=== PATIENT | female | born 1955 | race Caucasian/White ===

== ENCOUNTER → 2016-05-09 08:10 | Outpatient (CLI) | payer MEDICAID ==
[2016-01-21 16:49] VITALS: BMI 24.9
[~2016-05-09 08:10] MED LIST: ALPHAGAN P15 ML EACH EYE; ASPIRIN81 MG PO; BAYER CHEWABLE81 MG PO; CELEXA20 MG PO; GAS-X180 MG; GAS-X180 MG PO; HYDROCHLOROTHIA25 MG; HYDROCHLOROTHIA25 MG PO; HYDROCODONE-APA1 TAB; HYDROCODONE-APA1 TAB PO; LIPITOR20 MG PO; LUMIGAN 0.01%2.5 ML EACH EYE; NEXIUM40 MG; NITROSTAT0.4 MG SL; PLAVIX75 MG PO; PRILOSEC20 MG PO; ROBAXIN500 MG PO; TIMOPTIC 0.5 % O5 ML EACH EYE; TRAZODONE HCL50 MG PO; VALIUM10 MG PO
== END | disposition home or self-care (01) ==
LOC: D.RAD 08:10
DX: M54.2 Cervicalgia (principal)

== ENCOUNTER → 2017-02-20 11:08 | Outpatient (CLI) | payer MEDICAID ==
[~2017-02-20] VITALS: Ht 162.6 cm; Wt 72.7 kg
--- NOTE | ~2017-02-20 | HEMODYNAMI ---
PATIENT:JAZMIN ULIS MEDICAL RECORD: [id number] : 51 LOCATION:[facility] ADMISSION DATE: 02/20/17 Generatedon:02/20/201714:14 Patient name: JAZMIN LUIS Patient #: [id number] SSN: : 1955 Date of study: 02/20/2017 Page: Of Hemodynamic Procedure Report Patient Data Patient Demographics Procedure consent was obtained First Name: JAZMIN Gender: Female Last Name: TOBY : 1955 [facility] Initial: J Age: 61 year(s) Patient #: [id number] Race: Additional ID: [id number] Contact details [address]: [address] [place] [address] State: [place] City: [place] Zip code: [address] Past Medical History Allergies Allergen Reaction Date Comments Reported Sulfa drugs 06/23/2014 Other allergy 02/20/2017 Sulfa Admission Admission Data Admission Date: 02/20/2017 Admission Time: 11:08 Procedure Procedure Types Cath Procedure Diagnostic Procedure C [facility] w/Coronaries Miscellaneous Procedures Moderate Sedation up to 15 minutes Procedure Description Procedure Date Procedure Date: 02/20/2017 Procedure Start Time: 13:48 Procedure End Time: 14:13 Procedure Staff Name Function Spike Butler MD Performing Physician Petty Gomez RT Monitor Caroline Blake RT Scrub Sarwat Liu RN Nurse Procedure Data Cath Procedure Fluoroscopy Diagnostic fluoroscopy Total fluoroscopy Time: 3.6 time: 3.6 min min Diagnostic fluoroscopy Total fluoroscopy dose: 376 dose: 376 mGy mGy Contrast Material Contrast Material Type Amount (ml) Isovue 300 54 Entry Location Entry Primary Successful Side Size Upsize Upsize Entry Closure Yanez ccessful Closure Location (Fr) 1 (Fr) 2 (Fr) Remarks Device Remarks Radial Right 6 Fr Mechanical artery Short Compression Estimated blood loss: 10 ml Diagnostic catheters Device Type Used For End Catheter Placement Diagnostic Terumo 5Fr Procedure Valdez 110cm catheter Diagnostic Infinity 5Fr Procedure AR MOD Catheter Procedure Complications No complications Procedure Medications Medication Administration Route Dosage Oxygen NC 2 l/min Heparin Flush Bag added to field 2 bags (1000units/500ml NS) 0.9% NaCl I.V. 100 ml/hr Radial Cocktail added to field 1 syringe (Verapomil 2mg/Nitro 400mcg/Heparin 1500units) Fentanyl I.V. 50 mcg Versed I.V. 1 mg Fentanyl I.V. 50 mcg Versed I.V. 1 mg Radial Cocktail I.A. 1 syringe (Verapomil 2mg/Nitro 400mcg/Heparin 1500units) Fentanyl I.V. 50 mcg Hemodynamics Rest Heart Rate: 58 (bpm) Pressure Samples Time Site Value (mmHg) Purpose Heart Use Rate(bpm) 13:52 LV 83/6,11 Snapshot 101 Gradients Valve Time Site Site Mean SEP/DFP Peak To Heart Use 1 2 (mmHg) (sec/min) Peak Rate (mmHg) (bpm) Aortic 13:53 LV AO 74 Snapshots Pre Cath Intra NCS Post Cath Vital Signs Time Heart Resp SPO2 etCO2 NIBP (mmHg) Rhythm Pain Sedation Rate (ipm) (%) (mmHg) Status Level (bpm) 13:35:46 54 21 98 0 134/83(105) NSR 0 (11) 10(A) , No pain 13:39:56 57 17 100 38.2 141/81(119) NSR 0 (11) 10(A) , No pain 13:44:12 58 17 98 45 120/74(103) NSR 0 (11) 10(A) , No pain 13:48:19 59 18 95 0 121/74(94) NSR 0 (11) 10(A) , No pain 13:52:35 70 21 98 43.5 112/72(70) NSR 0 (11) 10(A) , No pain 13:57:22 71 20 91 36.7 113/73(91) NSR 0 (11) 10(A) , No pain 14:01:26 67 19 92 0 113/76(91) NSR 0 (11) 10(A) , No pain 14:05:30 66 28 95 50.3 118/73(106) NSR 0 (11) 10(A) , No pain 14:06:54 64 17 95 27 113/70(90) NSR 0 (11) 10(A) , No pain 14:10:59 62 8 94 34.5 114/68(94) NSR 0 (11) 10(A) , No pain Medications Time Medication Route Dose Verified Delivered Reason Notes Effectiveness by by 13:39:37 Oxygen NC 2 l/min Spike Sarwat Per Luke Liu RN physician 13:40:12 Heparin Flush added 2 bags Spike Sarwat used for Bag to Luke Liu RN procedure (1000units/500ml field NS) 13:40:27 0.9% NaCl I.V. 100 Spike Sarwat Per ml/hr Luke Liu RN physician 13:40:36 Radial Cocktail added 1 Spike Sarwat used for (Verapomil to syringe Luke Liu RN procedure 2mg/Nitro field 400mcg/Heparin 1500units) 13:46:01 Fentanyl I.V. 50 mcg Spike Sarwat for sedation Luke Liu RN 13:46:08 Versed I.V. 1 mg Spike Sarwat for sedation Luke Liu RN 13:50:30 Fentanyl I.V. 50 mcg Spike Sarwat for sedation Luke Liu RN 13:50:36 Versed I.V. 1 mg Spike Sarwat for sedation Luke Liu RN 13:52:27 Radial Cocktail I.A. 1 Spike Spike for (Verapomil syringe Luke Butler MD vasodilation 2mg/Nitro 400mcg/Heparin 1500units) 13:52:33 Fentanyl I.V. 50 mcg Spike Sarwat for sedation Luke Liu RN Procedure Log Time Note 13:16:18 Informed consent obtained and on chart 13:16:22 Diagnostic Cath Status : Elective 13:16:38 Caroline Blake RT(R) sent for patient. Start room use. 13:16:39 Time tracking: Regular hours 13:16:43 Plan of Care:Hemodynamics will remain stable., Cardiac rhythm will remain stable., Comfort level will be maintained., Respiratory function will remain adequate., Patient/ family verbilizes understanding of procedure., Procedure tolerated without complication., Recovers from procedure without complications.. 13:32:28 Patient received from Pre/Post Procedure Room to [facility] 2 Alert and oriented. Tansferred to table in Supine position. 13:32:30 Warm blankets applied, and nery hugger turned on for patient comfort. 13:32:30 Correct patient and procedure confirmed by team. 13:32:31 ECG and BP/O2 sat monitors applied to patient. 13:34:45 Vital chart was started 13:39:37 Oxygen 2 l/min NC was administered by Sarwat Liu RN; Per physician; 13:40:12 Heparin Flush Bag (1000units/500ml NS) 2 bags added to field was administered by Sarwat Liu RN; used for procedure; 13:40:27 0.9% NaCl 100 ml/hr I.V. was administered by Sarwat Liu RN; Per physician; 13:40:36 Radial Cocktail (Verapomil 2mg/Nitro 400mcg/Heparin 1500units) 1 syringe added to field was administered by Sarwat Liu RN; used for procedure; 13:41:35 Baseline sample Acquired. 13:41:41 Rhythm: sinus rhythm 13:41:44 Full Disclosure recording started 13:42:03 H&P Date Dictated: 02/08/2017 Within 30 days and on chart., H&P Addendum completed by physician on day of procedure. (MUST COMPLETE FOR ALL OUTPATIENTS). 13:42:06 Family in waiting room. 13:42:08 Patient NPO since Midnight. 13:42:24 Patient allergic to Other allergySulfa 13:42:30 Is patient on blood thinner?No 13:42:34 Patient diabetic? No. 13:42:44 Snore? Yes 13:42:46 Sleep apnea? No 13:42:47 Deviated septum? No 13:42:53 Dentures? No ? 13:43:01 IV patent on arrival in left hand with 0.9% NaCl at KVO. 13:43:13 Lab results completed and on chart. 13:43:17 Right Radial & Right Groin area was prepped with chlora-prep and draped in sterile fashion 13:43:19 Alarms reviewed by R. N. 13:43:20 Sharps counted by scrub and verified by R.N. 13:43:23 Physician paged 13:43:25 Physician arrived 13:43:25 --------ALL STOP TIME OUT------ 13:43:26 Final Timeout: patient, procedure, and site verified with staff and physician. All members of the team are in agreement. 13:43:28 Right Radial & Right Groin site verified by team. 13:43:35 Sedation plan: IV Moderate Sedation Medication:Versed, Fentanyl 13:44:32 Use device set Radial Dx 13:44:33 Acist Syringe opened to sterile field. 13:44:33 Medline Cath Pack opened to sterile field. 13:44:34 Bag Decanter opened to sterile field. 13:44:34 Terumo 6Fr Slender Glidesheath opened to sterile field. 13:44:35 St Se 260cm J .035 wire opened to sterile field. 13:44:36 Acist Hand Control opened to sterile field. 13:44:36 Acist Manifold opened to sterile field. 13:44:37 Tegaderm 4 x 4 opened to sterile field. 13:44:37 MBrace Wrist Support opened to sterile field. 13:46:01 Fentanyl 50 mcg I.V. was administered by Sarwat Liu RN; for sedation; 13:46:08 Versed 1 mg I.V. was administered by Sarwat Liu RN; for sedation; 13:48:37 Procedure started. 13:48:52 Local anesthetic to right femoral artery with Lidocaine 2% by Spike Butler MD.INITIAL ACCESS ONLY 13:48:55 Zero performed for pressure channel P1 13:49:13 A 6 Fr Short sheath was inserted into the Right Radial artery 13:50:30 Fentanyl 50 mcg I.V. was administered by Sarwat Liu RN; for sedation; 13:50:32 A Diagnostic Terumo 5Fr Valdez 110cm catheter was advanced over the wire and used for Procedure. 13:50:36 Versed 1 mg I.V. was administered by Sarwat Liu RN; for sedation; 13:51:57 LV angiography performed. 13:52:27 Radial Cocktail (Verapomil 2mg/Nitro 400mcg/Heparin 1500units) 1 syringe I.A. was administered by Spike Butler MD; for vasodilation; 13:52:33 Fentanyl 50 mcg I.V. was administered by Sarwat Liu RN; for sedation; 13:52:50 EF : 45 % 13:53:17 LCA angiography performed. 13:56:53 Catheter removed. 13:58:12 A Diagnostic Infinity 5Fr AR MOD Catheter was advanced over the wire and used for Procedure. 13:58:31 Catheter removed. 14:07:38 Terumo TR Band Standard opened to sterile field. 14:08:54 Sheath removed intact; hemostasis achieved with Mechanical Compression to the Right Radial artery. 14:08:57 Procedure ended.(Physican Out) 14:09:09 Fluoroscopy time 03.60 minutes. 14:09:25 Fluoroscopy dose: 376 mGy 14:09:25 Flurop Dose total: 376 14:09:29 Contrast amount:Isovue 300 54ml. 14:09:31 Sharps counted by scrub and verified by R.N. 14:09:42 TR band inflated with 11cc of air. 14:11:26 Insertion/operative site no bleeding no hematoma. 14:11:31 Post Procedure Pulses reassessed and unchanged 14:11:39 Post-procedure physical assessment completed. ASA score P 2 - A patient with mild systemic disease as per Spike Butler MD. 14:11:50 Post procedure rhythm: unchanged. 14:11:54 Estimated blood loss: 10 ml 14:11:56 Post procedure instruction explained to patient.Patient verbalizes understanding. 14:11:59 Patient needs reinforcement of post procedure teaching. 14:12:10 Procedure type changed to Cath procedure, Diagnostic procedure, LHC, LHC w/Coronaries, Miscellaneous Procedures, Moderate Sedation up to 15 minutes 14:12:15 Procedure and supply charges have been captured, reviewed, submitted and are correct. 14:12:45 Procedure Complication : No complications 14:12:49 Vital chart was stopped 14:12:50 See physician's report for complete and final results. 14:13:07 Report given to Pre/Post Procedure Room. 14:13:19 Patient transfered to Pre/Post Procedure Room with Stretcher. 14:13:21 Procedure ended. 14:13:21 Full Disclosure recording stopped 14:13:26 End room use (Document Last) Device Usage Item Name Manufacture Quantity Catalog Hospital Part Current Minimal Lot# / Number Charge Number Stock Stock Serial# Code Acist Acist 1 [id number] [id number] 20 Syringe [employer] Medline Cardinal 1 [id number] 50997 893367 5 Cath Pack Health Bag Microtek 1 2001S [id number] 50879 451138 5 Altor [employer] Terumo 6Fr Terumo 1 [id number] 695797 402440 858750 [address] Se 1 541453 935951 656663 944497 30 260cm J .035 wire Acist Hand Acist 1 71179 184232 478710 392474 5 Control [employer] Inc Acist Acist 1 49256 459807 449150 933525 5 Manifold [employer] Inc Tegaderm 4 3M 1 1626W 276976 023102 813096 5 x 4 MBrace Advanced 1 140-0250-00 961729 98159 249056 5 Wrist Vascular Support Dynamics Diagnostic Terumo 1 39-4664 623544 160837 373959 5 Terumo 5Fr Valdez 110cm catheter Diagnostic Cardinal 1 [id number] 692175 546415 542204 15 500 [place] 5Fr AR MOD Catheter Terumo TR Terumo 1 [id number] 931571 810968 254710 40 Band Standard Signature Audit [place] Stage Time Signature Unsigned Intra-Procedure 02/20/2017 Petty Gomez 2:14:09 PM RT(R) Signatures Monitor : Petty Gomez Signature : RT Date : Time : [place] [id number] [place] [address]
[~2017-02-20 11:08] MED LIST changes: +BRILINTA90 MG PO; +BUSPAR 15 MG TA15 MG PO; +HYSINGLA ER20 MG PO; +LISINOPRIL5 MG PO; +NEURONTIN600 MG PO; +ULTRAM50 MG PO
[2017-02-20 11:43] VITALS: BP 105/73; Ht 162.6 cm; Wt 72.7 kg
[2017-02-20 11:54] LABS: BASOPHILS 0.6 % (0-2); EOSINOPHILS 2.4 % (0-7); HEMATOCRIT 40.8 % (36.0-48.0); HEMOGLOBIN 13.2 g/dL (12-16); IMMATURE GRANULOCYTES 0.3 % (0-5); LYMPHOCYTES 26.3 % (15-50); MCH 28.5 pg (26.0-34.0); MCHC 32.4 g/dL (31.0-37.0); MCV 88.1 fL (80.0-100.0); MEAN PLATELET VOLUME 10.9 fL (7.4-10.4); MONOCYTES 7.7 % (2-11); NEUTROPHILS 62.7 % (40-80); PLATELET COUNT 254 10x3/uL (130-400); RBC 4.63 10x6/uL (4.00-5.40); RDW 13.9 % (11.5-14.5); WBC 6.8 10x3/uL (4.8-10.8)
[2017-02-20 12:17] LABS: ANION GAP 11.7 mmol/L (8-16); CALCIUM 8.6 mg/dL (8.5-10.1); CARBON DIOXIDE 28.6 mmol/L (21.0-32.0); CREATININE - SERUM 1.1 mg/dL (0.6-1.3); POTASSIUM - SERUM 4.3 mmol/L (3.5-5.1)
--- NOTE | 2017-02-20 14:35 | NUR ---
1435 PT DENIES ANY C/O. TR BAND CDI, FINGERS WARM, CAP REFILL IS BRISK. CALL LIGHT IN REACH. NO FAMILY AT BEDSIDE, WILL CONTINUE TO MONITOR.
--- NOTE | 2017-02-20 14:36 | NUR ---
1420 RECEIVED PT FROM [place] [facility] ATTACHER. PT IS DROWSY. DENIES ANY C/O CHEST PAIN OR NAUSEA. TR BAND IS CDI, NO BLEEDING OR HEMATOMA NOTED. FINGERS WARM, CAP REFILL IS BRISK. RR IS EVEN AND UNLABORED. NSR WITH RATE OF 61. BP 114/70.
--- NOTE | 2017-02-20 15:02 | NUR ---
1500 PT RESTING WITH EYES CLOSED, AWAKENS EASILY. DENIES ANY C/O. TR BAND IS CDI, AREA FREE FROM BLEEDING OR HEMATOMA. FINGERS WARM, CAP REFILL IS BRISK. WILL CONTINUE TO MONITOR.
--- NOTE | 2017-02-20 15:33 | NUR ---
2 CC OF AIR REMOVED FROM TR BAND WITH NO BLEEDING OR HEMATOMA NOTED. FINGERS WARM, CAP REFILL IS BRISK. PT DENIES ANY C/O. VSS.
--- NOTE | 2017-02-20 15:55 | NUR ---
1555 3 CC OF AIR REMOVED FROM TR BAND WITH NO BLEEDING OR HEMATOMA NOTED. FINGERS WARM, CAPILLARY REFILL BRISK. PT DENIES ANY C/O. HAS TOLERATED A SANDWICH AND PO FLUIDS WITH NO C/O NAUSEA. AT BEDSIDE.
--- NOTE | 2017-02-20 16:15 | NUR ---
1615 ALL AIR REMOVED FROM TR BAND WTIH NO BLEEDING OR HEMATOMA NOTED. FINGERS WARM, PULSES PALPABLE. PT DENIES ANY C/O. AT BEDSIDE. REQUESTED COFFEE AND THIS SERVED.
--- NOTE | 2017-02-20 17:21 | NUR ---
1700 DR ANTHONY HAS ROUNDED ON PT. IV HAS BEEN DC'D WITH CATH INTACT AND PT IS DRESSED FOR DC. PT HAS AMBULATED TO THE BATHROOM AND VOIDED QS. 2X2 AND TEGADERM CDI TO CATH SITE. WRIST IMMOBILIZER IN PLACE. REVIEWED DC INSTRUCTIONS WITH PT AND WHO VERBALIZE UNDERSTANDING. PT ESCORTED TO PRIVATE AUTO VIA WC BY NURSE WITH DRIVING HER HOME.
== END | disposition home or self-care (01) ==
LOC: D.CATH 11:08
PROVIDERS: Internal Medicine Cardiovascular Disease
DX: I25.110 Atherosclerotic heart disease of native coronary artery with unstable angina pectoris (principal); I10 Essential (primary) hypertension; Z01.812 Encounter for preprocedural laboratory examination

== ENCOUNTER 2017-02-27 16:06 | Emergency (ER) | payer MEDICAID ==
[2017-02-20 11:43] VITALS: BMI 27.5
[~2017-02-27 16:06] MED LIST changes: -BRILINTA90 MG PO
== END 2017-02-27 18:40 | disposition home or self-care (01) ==
LOC: D.ER 16:06
DX: J04.0 Acute laryngitis (principal); J01.90 Acute sinusitis, unspecified; J44.9 Chronic obstructive pulmonary disease, unspecified

== ENCOUNTER 2017-03-08 10:57 | Outpatient (CLI) | payer MEDICAID ==
[~2017-03-08] VITALS: Ht 162.6 cm; Wt 68.2 kg
--- NOTE | ~2017-03-08 | HEMODYNAMI ---
PATIENT:JAZMIN LUIS MEDICAL RECORD: [id number] : 51 LOCATION:[facility] ADMISSION DATE: 03/08/17 Generatedon:03/08/201715:18 Patient name: JAZMIN LUIS Patient #: [id number] SSN: : 1955 Date of study: 03/08/2017 Page: Of Hemodynamic Procedure Report Patient Data Patient Demographics Procedure consent was obtained First Name: JAZMIN Gender: Female Last Name: TOBY : 1955 [facility] Initial: J Age: 61 year(s) Patient #: [id number] Race: Additional ID: [id number] Contact details [address]: [address] [place] [address] State: [place] City: [place] Zip code: [address] Past Medical History Allergies Allergen Reaction Date Comments Reported Sulfa drugs 06/23/2014 Other allergy 02/20/2017 Sulfa Sulfa drugs 03/08/2017 Admission Admission Data Admission Date: 03/08/2017 Admission Time: 10:57 Procedure Procedure Types Cath Procedure PCI Procedure Coronary Stent Coronary Stent Initial Coronary Stent Additional PTCA PTCA Additional Miscellaneous Procedures Moderate Sedation up to 45 minutes Procedure Description Procedure Date Procedure Date: 03/08/2017 Procedure Start Time: 13:30 Procedure End Time: 15:18 Procedure Staff Name Function Spike Butler MD Performing Physician Yuliet Kellogg RT Monitor Alphonso Chambers RT Scrub Rohit Dillon RN Nurse Procedure Data Cath Procedure Fluoroscopy Diagnostic fluoroscopy Total fluoroscopy Time: time: 31.8 min 31.8 min Diagnostic fluoroscopy Total fluoroscopy dose: dose: 2455 mGy 2455 mGy Contrast Material Contrast Material Type Amount (ml) Isovue 300 186 Entry Location Entry Primary Successful Side Size Upsize Upsize Entry Closure Succes sful Closure Location (Fr) 1 (Fr) 2 (Fr) Remarks Device Remarks Femoral Right 7 Fr Exoseal artery Short Estimated blood loss: 10 ml Procedure Complications No complications Procedure Medications Medication Administration Route Dosage 0.9% NaCl I.V. 100 ml/hr Oxygen NC 2 l/min Heparin Flush Bag added to field 2 bags (1000units/500ml NS) Lidocaine 2% added to field 20 Versed I.V. 2 mg Fentanyl I.V. 100 mcg Versed I.V. 1 mg Fentanyl I.V. 50 mcg Versed I.V. 1 mg Fentanyl I.V. 50 mcg Heparin Bolus I.V. 6800 units Nitroglycerin IC/IA I.C. 100 mcg Versed I.V. 1 mg Versed I.V. 1 mg Fentanyl I.V. 50 mcg Versed I.V. 1 mg Versed I.V. 1 mg Fentanyl I.V. 50 mcg Versed I.V. 1 mg Versed I.V. 1 mg Heparin Bolus I.V. 3000 units Nitroglycerin IC/IA I.C. 100 mcg Nitroglycerin IC/IA I.C. 100 mcg Brilinta P.O. 180 mg Fentanyl I.V. 100 mcg Hemodynamics Rest Heart Rate: 58 (bpm) Snapshots Pre Cath Intra NCS Post Cath Vital Signs Time Heart Resp SPO2 etCO2 NIBP (mmHg) Rhythm Pain Sedation Rate (ipm) (%) (mmHg) Status Level (bpm) 13:22:37 61 15 99 39.4 141/82(112) NSR 0 (11) 10(A) , No pain 13:27:13 67 19 98 35.7 119/72(98) NSR 0 (11) 10(A) , No pain 13:31:47 71 16 98 41.7 119/73(89) NSR 0 (11) 10(A) , No pain 13:36:22 75 14 96 20.1 107/77(91) NSR 0 (11) 9(A) , No pain 13:40:56 78 17 96 0 121/66(98) NSR 0 (11) 10(A) , No pain 13:45:31 82 16 97 55.8 128/80(93) NSR 0 (11) 10(A) , No pain 13:50:05 79 19 96 0 124/70(97) NSR 0 (11) 10(A) , No pain 13:54:42 77 14 96 0 116/67(91) NSR 0 (11) 10(A) , No pain 13:59:16 77 14 96 17.8 101/73(88) NSR 0 (11) 10(A) , No pain 14:04:17 79 15 96 41.6 130/72(95) NSR 0 (11) 10(A) , No pain 14:08:54 75 20 96 47.6 114/75(104) NSR 0 (11) 10(A) , No pain 14:13:30 76 16 95 0 98/63(75) NSR 0 (11) 9(A) , No pain 14:18:03 75 14 96 0 100/65(81) NSR 0 (11) 9(A) , No pain 14:22:37 72 14 96 0 105/60(82) NSR 0 (11) 9(A) , No pain 14:27:38 77 16 97 26.8 125/74(107) NSR 0 (11) 9(A) , No pain 14:32:13 78 14 95 27.5 117/79(99) NSR 0 (11) 9(A) , No pain 14:36:47 76 13 96 0 101/70(94) NSR 0 (11) 9(A) , No pain 14:41:18 77 13 96 28.2 110/77(98) NSR 0 (11) 10(A) , No pain 14:45:52 75 14 96 32 110/74(102) NSR 0 (11) 9(A) , No pain 14:50:26 77 14 95 0 100/70(87) NSR 0 (11) 9(A) , No pain 14:54:59 83 13 93 39.4 101/64(78) NSR 0 (11) 9(A) , No pain 14:59:29 78 14 94 44.6 111/76(99) NSR 0 (11) 9(A) , No pain 15:04:01 80 18 96 38.7 111/75(90) NSR 0 (11) 9(A) , No pain 15:08:34 82 14 95 34.9 112/76(90) NSR 0 (11) 9(A) , No pain 15:13:08 78 16 95 43.1 111/73(91) NSR 0 (11) 9(A) , No pain 15:17:43 76 12 95 37.2 110/70(90) NSR 0 (11) 9(A) , No pain Medications Time Medication Route Dose Verified Delivered Reason N otes Effectiveness by by 13:20:20 0.9% NaCl I.V. 100 ml/hr Rohit Rohit Per physician Wilma Dillon RN RN 13:20:30 Oxygen NC 2 l/min Rohit Rohit Per physician Wilma Dillon RN RN 13:20:41 Heparin Flush added 2 bags Rohit Rohit used for Bag to Wilma Dillon procedure (1000units/500ml field RN RN NS) 13:20:53 Lidocaine 2% added 20ml vial Rohit Rohit for local to Lorigan Lorigan anesthetic RN RN 13:22:38 Versed I.V. 2 mg Rohit Rohit for sedation Wilma Dillon RN RN 13:22:48 Fentanyl I.V. 100 mcg Rohit Rohit for sedation Wilma Dillon RN RN 13:28:05 Versed I.V. 1 mg Rohit Rohit for sedation Wilma Dillon RN RN 13:30:40 Fentanyl I.V. 50 mcg Rohit Rohit for sedation Wilma Dillon RN RN 13:30:48 Versed I.V. 1 mg Rohit Rohit for sedation Wilma Dillon RN RN 13:31:36 Fentanyl I.V. 50 mcg Rohit Rohit for sedation Wilma Dillon RN RN 13:36:08 Heparin Bolus I.V. 6,800 Rohit Rohit for units Wilma bills RN RN 13:37:56 Nitroglycerin I.C. 100 mcg Rohit Spike for IC/IA Wilma cardoso RN 13:44:50 Versed I.V. 1 mg Rohit Rohit for sedation Wilma Dillon RN RN 13:49:50 Versed I.V. 1 mg Rohit Rohit for sedation Wilma Dillon RN RN 13:57:44 Fentanyl I.V. 50 mcg Rohit Rohit for sedation Wilma Dillon RN RN 14:07:42 Versed I.V. 1 mg Rohit Rohit for sedation Wilma Dillon RN RN 14:09:43 Versed I.V. 1 mg Rohit Rohit for sedation Wilma Dillon RN RN 14:26:18 Fentanyl I.V. 50 mcg Rohit Rohit for sedation Wilma Dillon RN RN 14:29:37 Versed I.V. 1 mg Rohit Rohit for sedation Wilma Dillon RN RN 14:45:42 Versed I.V. 1 mg Rohit Rohit for sedation Wilma Dillon RN RN 14:59:39 Heparin Bolus I.V. 3,000units Rohit Rohit for Wilma Dillon anticoagulation RN RN 15:04:28 Nitroglycerin I.C. 100 mcg Rohit Spike for IC/IA Wilma Butler MD vasodilation RN 15:05:12 Nitroglycerin I.C. 100 mcg Rohit Spike for IC/IA Wilma Butler MD vasodilation RN 15:13:01 Brilinta P.O. 180 mg Rohit Rohit for Wilma Dillon antiplatelet RN RN therapy 15:13:17 Fentanyl I.V. 100 mcg Rohit Rohit for sedation Wilma Dillon RN laser set up operator Log Time Note 13:01:56 Alphonso Chambers RT(R) sent for patient. Start room use. 13:01:57 Time tracking: Regular hours 13:02:02 Plan of Care:Hemodynamics will remain stable., Cardiac rhythm will remain stable., Comfort level will be maintained., Respiratory function will remain adequate., Patient/ family verbilizes understanding of procedure., Procedure tolerated without complication., Recovers from procedure without complications.. 13:08:45 Patient received from Pre/Post Procedure Room to CCL 1 Alert and oriented. Tansferred to table in Supine position. 13:08:46 Warm blankets applied, and nery hugger turned on for patient comfort. 13:08:47 Correct patient and procedure confirmed by team. 13:08:48 Signed procedure consent form obtained from patient. 13:08:50 ECG and BP/O2 sat monitors applied to patient. 13:08:50 Full Disclosure recording started 13:19:11 H&P Date Dictated: 02/28/2017 Within 30 days and on chart., H&P Addendum completed by physician on day of procedure. (MUST COMPLETE FOR ALL OUTPATIENTS). 13:19:24 Baseline sample Acquired. 13:19:28 Rhythm: sinus rhythm 13:20:20 0.9% NaCl 100 ml/hr I.V. was administered by Rohit Dillon RN; Per physician; :20:24 Pre-procedure instructions explained to patient. 13:20:25 Pre-op teaching completed and patient verbalized understanding. 13:20:27 Family in waiting room. 13:20:29 Patient NPO since Midnight. 13:20:30 Oxygen 2 l/min NC was administered by Rohit Dillon RN; Per physician; 13:20:36 Patient allergic to Sulfa drugs 13:20:38 Is the patient allergic to Iodine/contrast media? No. 13:20:41 Heparin Flush Bag (1000units/500ml NS) 2 bags added to field was administered by Rohit Dillon RN; used for procedure; 13:20:41 Is patient on blood thinner?No 13:20:44 Patient diabetic? No. 13:20:48 Previous problem with sedation/anesthesia? No ? 13:20:53 Lidocaine 2% 20ml vial added to field was administered by Rohit Dillon RN; for local anesthetic; 13:21:05 Snore? Yes 13:21:06 Sleep apnea? No 13:21:07 Deviated septum? No 13:21:07 Opens mouth fully? Yes 13:21:08 Sticks out tongue? Yes 13:21:10 Airway obstruction? No ? 13:21:12 Dentures? No ? 13:21:14 Pre procedure: right dorsailis pedis pulse 2+ Normal; easily identifiable; not easily obliterated 13:21:16 Patient pain scale 0/10 ?. 13:21:22 IV patent on arrival in left forearm with 0.9% NaCl at [facility]. 13:21:25 Lab results completed and on chart. 13:21:28 Right groin area was prepped with chlora-prep and draped in sterile fashion 13:21:29 Alarms reviewed by R. N. 13:21:30 Sharps counted by scrub and verified by R.N. 13:21:36 Use device set CATH PACK 13:21:40 Use device set BUTLER PCI 13:21:42 ACIST Syringe (97269) opened to sterile field. 13:21:42 ACIST Hand Control (91175) opened to sterile field. 13:21:43 ACIST Manifold (03996) opened to sterile field. 13:21:44 Medline Cath Pack ([id number]) opened to sterile field. 13:21:44 Bag Decanter (2001S) opened to sterile field. 13:21:45 DIAGNOSTIC WIRE .035 260cm J wire (241664) opened to sterile field. 13:21:46 TUBING High Pressure Extension Tubing (Luke) ([id number]) opened to sterile field. 13:21:47 INFLATOR Merit BasixCompak (AA8036) opened to sterile field. 13:21:48 SHEATH 7FR Sheldahl (DLO643) opened to sterile field. 13:21:48 Vital chart was started 13:21:49 BMW 300cm [place] 2 J wire ([id number]) opened to sterile field. 13:21:50 LUGE Straight 300cm 0.014 guide wire ([id number]) opened to sterile field. 13:22:02 GUIDE 7FR EBU 3.5 catheter ([id number]) opened to sterile field. 13:22:08 Final Timeout: patient, procedure, and site verified with staff and physician. All members of the team are in agreement. 13:22:09 Right groin site verified by team. 13:22:12 Physical assessment completed. ASA score P 2 - A patient with mild systemic disease as per Spike Butler MD. 13:22:14 Sedation plan: IV Moderate Sedation Medication:Versed, Fentanyl 13:22:38 Versed 2 mg I.V. was administered by Rohit Dillon RN; for sedation; 13:22:48 Fentanyl 100 mcg I.V. was administered by Rohit Dillon RN; for sedation; 13:27:23 Zero performed for pressure channel P1 13:28:05 Versed 1 mg I.V. was administered by Rohit Dillon RN; for sedation; 13:30:37 Procedure started. 13:30:40 Fentanyl 50 mcg I.V. was administered by Rohit Dillon RN; for sedation; 13:30:40 Local anesthetic to right femoral artery with Lidocaine 2% by Spike Butler MD.INITIAL ACCESS ONLY 13:30:48 Versed 1 mg I.V. was administered by Rohit Dillon RN; for sedation; 13:31:36 Fentanyl 50 mcg I.V. was administered by Rohit Dillon RN; for sedation; 13:33:07 A 7 Fr Short sheath was inserted into the Right Femoral artery 13:34:03 7 Fr EBU 3.5 guide catheter was inserted over the wire 13:36:08 Heparin Bolus 6,800 units I.V. was administered by Rohit Dillon RN; for anticoagulation; 13:37:56 Nitroglycerin IC/IA 100 mcg I.C. was administered by Spike Butler MD; for vasodilation; 13:38:08 BMW down OM2 wire advanced. 13:39:13 LUGE down AV Cx wire advanced. 13:44:04 Inflation number: 1 A MAVERICK 2.5 X 15 balloon ([id number]) was prepped and advanced across the Dist CX, then inflated to 12 FAINA for 0:30 (min:sec). 13:44:45 Inflation number: 2 The MAVERICK 2.5 X 15 balloon ([id number]) was reinflated across the Dist CX, to 13 FAINA for 0:19 (min:sec). 13:44:50 Versed 1 mg I.V. was administered by Rohit Dillon RN; for sedation; 13:45:02 Balloon removed over the wire. 13:49:50 Versed 1 mg I.V. was administered by Rohit Dillon RN; for sedation; 13:50:41 Inflation number: 1 A MAVERICK 2.0 X 12 balloon ([id number]) was prepped and advanced across the 2nd Ob Martha, then inflated to 8 FAINA for 0:10 (min:sec). 13:55:54 Balloon removed over the wire. 13:57:44 Fentanyl 50 mcg I.V. was administered by Rohit Dillon RN; for sedation; 14:00:49 BMW wire removed from OM2 14:01:57 Inflation Number: 3 A INGRID OTW 3.0 x 15 stent ([id number]) was prepped and advanced across the Dist CX. The stent was deployed at 10 FAINA for 0:18 (min:sec). 14:03:05 BMW down OM1 wire advanced. 14:04:30 Stent catheter was removed intact over wire. 14:07:42 Versed 1 mg I.V. was administered by Rohit Dillon RN; for sedation; 14:08:35 Inflation number: 1 A MAVERICK 3.0 X 12 balloon ([id number]) was prepped and advanced across the 1st Ob Martha, then inflated to 8 FAINA for 0:20 (min:sec). 14:09:08 Balloon removed over the wire. 14:09:43 Versed 1 mg I.V. was administered by Rohit Dillon RN; for sedation; 14:15:35 Inflation Number: 2 A TRYTON 3.0-3.5 x 15 bifurcation stent ([id number]) was prepped and advanced across the 1st Ob Martha. The stent was deployed at 8 FAINA for 0:15 (min:sec). 14:17:11 Stent catheter was removed intact over wire. 14:20:48 Inflation number: 3 A MAVERICK 3.5 X 12 balloon ([id number]) was prepped and advanced across the 1st Ob Martha, then inflated to 8 FAINA for 0:25 (min:sec). 14:23:02 Balloon removed over the wire. 14:26:18 Fentanyl 50 mcg I.V. was administered by Rohit Dillon RN; for sedation; 14:28:55 LUGE Straight 300cm 0.014 guide wire ([id number]) opened to sterile field. 14:29:18 New Luge down AV Cx wire advanced. 14:29:37 Versed 1 mg I.V. was administered by Rohit Dillon RN; for sedation; 14:30:11 BMW Wire removed from OM 1 14:33:00 Wire removed. unable to cross lesion. 14:33:10 BMW 300cm [place] 2 J wire ([id number]) opened to sterile field. 14:33:38 New BMW down AV cx wire advanced. 14:37:11 The MAVERICK 3.5 X 12 balloon ([id number]) was advanced and then removed because of failure to cross lesion 14:39:01 Inflation number: 1 A EUPHORA 1.5 x 12 balloon ([id number]) was prepped and advanced across the Mid CX, then inflated to 12 FAINA for 0:19 (min:sec). 14:44:20 Balloon removed over the wire. 14:45:10 The INGRID OTW 3.0 x 18 stent ([id number]) was advanced then removed because of failure to cross lesion 14:45:42 Versed 1 mg I.V. was administered by Rohit Dillon RN; for sedation; 14:47:40 Inflation number: 2 The MAVERICK 2.5 X 15 balloon ([id number]) was reinflated across the Mid CX, to 12 FAINA for 0:19 (min:sec). 14:47:56 Balloon removed over the wire. 14:48:56 1st Trapped wire removed from Av Circ 14:52:34 Inflation Number: 3 A INGRID OTW 3.0 x 18 stent ([id number]) was prepped and advanced across the Mid CX. The stent was deployed at 12 FAINA for 0:18 (min:sec). 14:55:32 BMW down OM1 wire advanced. 14:59:39 Heparin Bolus 3,000units I.V. was administered by Rohit Dillon RN; for anticoagulation; 15:01:10 Stent catheter was removed intact over wire. 15:04:28 Nitroglycerin IC/IA 100 mcg I.C. was administered by Spike Butler MD; for vasodilation; 15:05:12 Nitroglycerin IC/IA 100 mcg I.C. was administered by Spike Butler MD; for vasodilation; 15:06:42 The MAVERICK 3.0 X 12 balloon ([id number]) was advanced and then removed because of failure to cross lesion 15:06:52 Wire removed. 15:06:55 Guide catheter removed. 15:07:06 Sheath removed intact; hemostasis achieved with Exoseal to the Right Femoral artery. 15:07:20 EXOSEAL 7Fr (EX700) opened to sterile field. 15:07:25 Procedure ended.(Physican Out) 15:08:48 Fluoroscopy time 31.80 minutes. 15:08:52 Flurop Dose total: 2455 15:08:52 Fluoroscopy dose: 2455 mGy 15:10:05 Contrast amount:Isovue 300 186ml. 15:10:06 Sharps counted by scrub and verified by R.N. 15:10:07 Insertion/operative site no bleeding no hematoma. 15:10:11 Post-op/insertion site Right Femoral artery dressed using a 4 x 4 and Tegaderm. 15:10:28 Post right femoral artery:stable, soft, clean and dry 15:10:30 Post Procedure Pulses reassessed and unchanged 15:10:33 Post-procedure physical assessment completed. ASA score P 2 - A patient with mild systemic disease as per Spike Butler MD. 15:10:35 Post procedure rhythm: unchanged. 15:10:40 Estimated blood loss: 10 ml 15:10:43 Post procedure instruction explained to patient.Patient verbalizes understanding. 15:10:43 Patient needs reinforcement of post procedure teaching. 15:10:49 Procedure Complication : No complications 15:10:52 See physician's report for complete and final results. 15:12:10 Procedure type changed to Cath procedure, PCI procedure, Coronary Stent, Coronary Stent Initial, Coronary Stent Additional, PTCA, PTCA Additional, Miscellaneous Procedures, Moderate Sedation up to 45 minutes 15:12:51 Tegaderm 4 x 4 (1626W) opened to sterile field. 15:13:01 Brilinta 180 mg P.O. was administered by Rohit Dillon RN; for antiplatelet therapy; 15:13:17 Fentanyl 100 mcg I.V. was administered by Rohit Dillon RN; for sedation; 15:15:16 Procedure and supply charges have been captured, reviewed, submitted and are correct. 15:17:48 Vital chart was stopped 15:17:52 Report given to Pre/Post Procedure Room. 15:17:58 Patient transfered to Pre/Post Procedure Room with Stretcher. 15:18:08 Procedure ended. 15:18:08 Full Disclosure recording stopped 15:18:12 End room use (Document Last) Intervention Summary Intervention Notes Time ActionType Lesion and Equipment Action# Pressure Duration Attributes Used 13:44:04 Inflate Dist CX MAVERICK 2.5 1 12 00:30 balloon X 15 balloon ([id number]) 13:44:45 Reinflate Dist CX MAVERICK 2.5 2 13 00:19 balloon X 15 balloon ([id number]) 13:50:41 Inflate 2nd Ob Martha MAVERICK 2.0 1 8 00:10 balloon X 12 balloon ([id number]) 14:01:57 Place stent Dist CX INGRID OTW 3.0 3 10 00:18 x 15 stent ([id number]) 14:08:35 Inflate 1st Ob Martha MAVERICK 3.0 1 8 00:21 balloon X 12 balloon ([id number]) 14:15:35 Place stent 1st Ob Martha TRYTON 2 8 00:15 3.0-3.5 x 15 bifurcation stent ([id number]) 14:20:48 Inflate 1st Ob Martha MAVERICK 3.5 3 8 00:25 balloon X 12 balloon ([id number]) 14:37:11 Discard MAVERICK 3.5 Balloon X 12 balloon ([id number]) 14:39:01 Inflate Mid CX EUPHORA 1.5 x 1 12 00:20 balloon 12 balloon ([id number]) 14:45:10 Discard INGRID OTW 3.0 Stent x 18 stent ([id number]) 14:47:40 Reinflate Mid CX MAVERICK 2.5 2 12 00:20 balloon X 15 balloon ([id number]) 14:52:34 Place stent Mid CX INGRID OTW 3.0 3 12 00:18 x 18 stent ([id number]) 15:06:42 Discard MAVERICK 3.0 Balloon X 12 balloon ([id number]) Device Usage Item Name Manufacture Quantity Catalog Number Hospital Part Current M inimal Lot# / Charge Number Stock Stock Serial# Code ACIST Syringe Acist 1 30828 688344 080917 890751 2 0 (78314) Medical Systems Inc ACIST Hand Acist 1 47162 122716 742114 887462 5 Control Medical (20517) Systems Inc ACIST Acist 1 07564 035877 104581 940621 5 Manifold Medical (82199) Systems Inc Medline Cath Cardinal 1 [id number] 155275 68601 027697 5 Overtime Media ([id number]) Bag Decanter Microtek 1 2001S 728730 48913 591795 5 () Medical Inc. DIAGNOSTIC St Se 1 010861 238828 045603 460392 3 0 WIRE .035 260cm J wire (682683) TUBING High Merit 1 [id number] 230251 55807 252995 1 0 Pressure Medical Extension Tubing (Butler) (FQ8027X) INFLATOR Merit 1 NH5371 475480 199058 509119 1 5 Merit Medical BasixCompak (IX0662) SHEATH 7FR Terumo 1 DNV696 313080 738152 730656 5 Sheldahl (WSH112) BMW 300cm Chu 2 [id number] 157876 533970 528414 5 [place] 2 J Vascular wire (0102407M) LUGE Straight Adair 2 [id number] 386155 240683 950933 5 [id number] 300cm 0.014 Scientific guide wire (74934218) GUIDE 7FR EBU Medtronic 1 [id number] 599484 399578 661018 0 3.5 catheter ([id number]) MAVERICK 2.5 Adair 1 [id number] 299467 699278 970703 1 [id number] X 15 balloon Scientific ([id number]) MAVERICK 2.0 Adair 1 [id number] 830377 592410 251397 1 [id number] X 12 balloon Scientific () INGRID OTW 3.0 Medtronic 1 [id number] 741296 208302 379982 5 [id number] x 15 stent ([id number]) MAVERICK 3.0 Adair 2 [id number] 168525 044640 142600 1 [id number] X 12 balloon Scientific [id number] ([id number]) TRYTON Cardinal 1 [id number] 372290 9660292 39401 5 [id number] 3.0-3.5 x 15 Health bifurcation stent ([id number]) MAVERICK 3.5 Adair 2 [id number] 146222 422666 915535 1 X 12 balloon Scientific ([id number]) EUPHORA 1.5 x Medtronic 1 [id number] 508185 063781 882340 5 [id number] 12 balloon ([id number]) INGRID OTW 3.0 Medtronic 1 [id number] 293933 1510503 122499 5 [id number] x 18 stent ([id number]) EXOSEAL 7Fr Cardinal 1 EX700 818760 797634 926718 5 (EX700) Health Tegaderm 4 x 3M 1 1626W 954361 712226 085190 5 4 (1626W) Signature Audit [place] Stage Time Signature Unsigned Intra-Procedure 03/08/2017 Yuliet 3:18:25 PM Counts RT(R) Signatures Monitor : Yuliet Signature : Counts RT Date : Time : [facility] [address] [place] [address]
[2017-03-08 11:34] VITALS: BP 136/78; Ht 162.6 cm; Wt 68.2 kg
[2017-03-08 11:53] LABS: BASOPHILS 0.7 % (0-2); EOSINOPHILS 2.1 % (0-7); HEMATOCRIT 44.2 % (36.0-48.0); HEMOGLOBIN 14.8 g/dL (12-16); IMMATURE GRANULOCYTES 0.3 % (0-5); LYMPHOCYTES 28.2 % (15-50); MCHC 33.5 g/dL (31.0-37.0); MCV 86.5 fL (80.0-100.0); MEAN PLATELET VOLUME 10.4 fL (7.4-10.4); MONOCYTES 8.7 % (2-11); RBC 5.11 10x6/uL (4.00-5.40); RDW 13.8 % (11.5-14.5)
[2017-03-08 11:58] LABS: PLATELET COUNT 313 10x3/uL (130-400)
[2017-03-08 12:12] LABS: ANION GAP 12.1 mmol/L (8-16); CALCIUM 9.1 mg/dL (8.5-10.1); CARBON DIOXIDE 29.5 mmol/L (21.0-32.0); CREATININE - SERUM 1.1 mg/dL (0.6-1.3); POTASSIUM - SERUM 3.6 mmol/L (3.5-5.1)
[2017-03-08] MEDS ORDERED: BRILINTA90 MG PO (15:35)
--- NOTE | 2017-03-08 15:53 | NUR ---
1545 LYING FLAT, 2L NC APPLIED, NO RESP DISTRESS. NSR RATE 68 PULSES PALP X 4. PATIENT C/O CHEST HEAVINESS BUT DENIES CHEST PAIN. ALSO DESCRIBES SOB. ALL VITALS WNL. DR. ANTHONY NOTIFIED OF CHANGES. WILL MONITOR CLOSELY.
--- NOTE | 2017-03-08 16:26 | NUR ---
1615 LYING FLAT WITH EYES CLOSED, 2L NC REMAINS IN PLACE. ALL VITALS WNL. R GROIN 7F EXOSEAL C/D/I W NO HEMATOMA OR BLEEDING.
--- NOTE | 2017-03-08 17:21 | NUR ---
1715 SLEEPING, ROOM AIR W NO DISTRESS. NO C/O CHEST PAIN. PULSES PALP X 4. R GROIN 7F EXOSEAL C/D/I W NO HEMATOMA OR BLEEDING.
--- NOTE | 2017-03-08 18:23 | NUR ---
HOB ELEVATED, EATING TURKEY SANDWICH. WILL MONITOR R GROIN FOR BLEEDING. ALL VITALS WNL.
--- NOTE | 2017-03-08 19:02 | NUR ---
PIV REMOVED FROM LEFT HAND WITH BANDAID APPLIED. R GROIN REMAINS C/D/I W NO HEMATOMA OR BLEEDING.
--- NOTE | 2017-03-08 19:18 | NUR ---
UP TO BEDSIDE TO DRESS. R GROIN REMAINS C/D/I WNO HEMATOMA OR BLEEDING.
--- NOTE | 2017-03-08 19:37 | NUR ---
AMBULATED TO BATHROOM TO VOID. R GROIN REMAINS C/D/I AFTER AMBULATING. D/C INSTRUCTIONS DISCUSSED WITH PATIENT AND AT BEDSIDE. SAMPLE OF BRILINTA GIVEN WELL RX. WHEELED OUT VIA WHEELCHAIR BY CATH TEAM.
== END 2017-03-08 19:38 | disposition home or self-care (01) ==
LOC: D.CATH 10:57
PROVIDERS: Internal Medicine Cardiovascular Disease
DX: I25.110 Atherosclerotic heart disease of native coronary artery with unstable angina pectoris (principal); Z01.812 Encounter for preprocedural laboratory examination

== ENCOUNTER 2017-05-11 14:26 | Emergency (ER) | payer MEDICAID ==
[2017-03-08 11:34] VITALS: BMI 25.8
[~2017-05-11 14:26] MED LIST changes: +BRILINTA90 MG PO
== END 2017-05-11 16:46 | disposition home or self-care (01) ==
LOC: D.ER 14:26
DX: J11.1 Influenza due to unidentified influenza virus with other respiratory manifestations (principal); J44.9 Chronic obstructive pulmonary disease, unspecified; I10 Essential (primary) hypertension; F17.200 Nicotine dependence, unspecified, uncomplicated

== ENCOUNTER → 2017-07-26 09:31 | Outpatient (CLI) | payer MEDICAID ==
[2017-03-08 11:34] VITALS: BMI 25.8
== END | disposition home or self-care (01) ==
LOC: D.CT 09:31
DX: R05 Cough (principal); J06.9 Acute upper respiratory infection, unspecified

== ENCOUNTER → 2017-08-28 09:44 | Outpatient (CLI) | payer MEDICAID ==
[2017-03-08 11:34] VITALS: BMI 25.8
== END | disposition home or self-care (01) ==
LOC: D.CT 09:44
DX: I10 Essential (primary) hypertension (principal)

== ENCOUNTER → 2017-10-17 07:41 | Outpatient (CLI) | payer MEDICAID ==
[2017-03-08 11:34] VITALS: BMI 25.8
[2017-10-17 09:01] LABS: ALBUMIN 3.6 g/dL (3.4-5.0); BILIRUBIN - DIRECT 0.1 mg/dL (0.00-0.30); BILIRUBIN - INDIRECT 0.37 mg/dL (0.00-1.00); BILIRUBIN - TOTAL 0.47 mg/dL (0.2-1.3); PROTEIN - SERUM 7.6 g/dL (6.4-8.2)
== END | disposition home or self-care (01) ==
LOC: D.US 07:41
PROVIDERS: Internal Medicine Gastroenterology
DX: R13.12 Dysphagia, oropharyngeal phase (principal); R10.11 Right upper quadrant pain; K83.8 Other specified diseases of biliary tract

== ENCOUNTER → 2017-10-25 10:27 | Outpatient (CLI) | payer MEDICAID ==
[2017-03-08 11:34] VITALS: BMI 25.8
== END | disposition home or self-care (01) ==
LOC: D.CT 10:00
DX: R91.8 Other nonspecific abnormal finding of lung field (principal)

== ENCOUNTER 2018-02-19 11:33 | Outpatient (CLI) | payer MEDICAID ==
[~2018-02-19] VITALS: Ht 162.6 cm; Wt 68.2 kg
--- NOTE | ~2018-02-19 | HEMODYNAMI ---
PATIENT:JAZMIN LUIS MEDICAL RECORD: [id number] : 51 LOCATION:[facility] ADMISSION DATE: 02/19/18 Generatedon:02/19/201814:19 Patient name: JAZMIN LUIS Patient #: [id number] SSN: : 1955 Date of study: 02/19/2018 Page: Of Hemodynamic Procedure Report Patient Data Patient Demographics Procedure consent was obtained First Name: JAZMIN Gender: Female Last Name: TOBY : 1955 [facility] Initial: J Age: 62 year(s) Patient #: [id number] Race: Additional ID: [id number] Contact details [address]: [address] [place] [address] State: [place] City: [place] Zip code: [address] Past Medical History Allergies Allergen Reaction Date Comments Reported Sulfa drugs 06/23/2014 Other allergy 02/20/2017 Sulfa Sulfa drugs 03/08/2017 Sulfa drugs 02/19/2018 Admission Admission Data Admission Date: 02/19/2018 Admission Time: 11:33 Height (in.): 64 BSA: 1.76 (m2) Height (cm.): 162.56 BMI: 26.95 (kg/m2) Weight (lbs.): 157 Weight (kg.): 71.21 Lab Results Lab Result Date: 02/19/2018 Lab Result Time: 0:00 Biochemistry Name Units Result Min Max BUN mg/dl 11 --(-*--)-- 7 18 Creatinine mg/dl 1 --(--*-)-- 0.6 1.3 CBC Name Units Result Min Max Hemoglobin g/dl 14.5 --(*---)-- 13.5 17.5 Procedure Procedure Types Cath Procedure Diagnostic Procedure LHC LH w/Coronaries Sedation Charges Moderate Sedation up to 15 minutes Peripheral Cath Diagnostic Procedure Furnace Brazer Peripheral Procedures Renal Arteriogram Procedure Description Procedure Date Procedure Date: 02/19/2018 Procedure Start Time: 14:01 Procedure End Time: 14:16 Procedure Staff Name Function Spike Butler MD Performing Physician Maddi Haque RT Monitor Farhad Mckeon RT Scrub Paula Reyes RN Nurse Sarwat Liu RN Nurse Procedure Data Cath Procedure Fluoroscopy Diagnostic fluoroscopy Total fluoroscopy Time: 3 time: 3 min min Diagnostic fluoroscopy Total fluoroscopy dose: 321 dose: 321 mGy mGy Contrast Material Contrast Material Type Amount (ml) Isovue 300 98 Entry Location Entry Primary Successful Side Size Upsize Upsize Entry Closure Succes sful Closure Location (Fr) 1 (Fr) 2 (Fr) Remarks Device Remarks Femoral Right 5 Fr Exoseal artery Estimated blood loss: 10 ml Diagnostic catheters Device Type Used For End Catheter Placement MULTIPACK JL 4.0 5Fr Procedure catheter MULTIPACK 3DRC 5Fr Procedure catheter MULTIPACK Pigtail 5 Fr Procedure catheter Procedure Complications No complications Procedure Medications Medication Administration Route Dosage 0.9% NaCl I.V. 100 ml/hr Oxygen etCO2 Nasal cannula 2 l/min Lidocaine 2% added to field 20 Heparin Flush Bag added to field 2 bags (1000units/500ml NS) Fentanyl I.V. 100 mcg Versed I.V. 2 mg Versed I.V. 2 mg Fentanyl I.V. 100 mcg Versed I.V. 2 mg Fentanyl I.V. 50 mcg Versed I.V. 2 mg Hemodynamics Rest BSA: 1.76 (m2) HGB: 14.5 (g/dl) O2 Consumption: Estimated: 162.39 (ml/min) O2 Co nsumption indexed: Estimated:92.27 (ml/min/m) Heart Rate: 66 (bpm) Pressure Samples Time Site Value (mmHg) Purpose Heart Use Rate(bpm) 14:07 LV 144/2,13 Snapshot 71 14:08 AO 141/72(99) Pullback 71 14:08 LV 162/2,28 Pullback 71 Gradients Valve Time Site 1 Site 2 Mean SEP/DFP Peak To Heart Use (mmHg) (sec/min) Peak Rate (mmHg) (bpm) Aortic 14:08 LV AO 6 23 21 71 162/2,28 141/72(99) Calculations Valve P-P Mean Valve Index Valve Source Name Gradient Area Flow (cm2) Aortic 21 6 21 6 Snapshots Pre Cath Intra NCS Post Cath Vital Signs Time Heart Resp SPO2 etCO2 NIBP (mmHg) Rhythm Pain Sedation Rate (ipm) (%) (mmHg) Status Level (bpm) 13:46:00 60 10 98 31 184/102(152) NSR 0 (11) 10(A) , No pain 13:50:22 64 16 98 32.4 179/103(151) NSR 0 (11) 10(A) , No pain 13:54:41 71 11 97 31.6 159/95(141) NSR 0 (11) 10(A) , No pain 13:58:56 70 10 98 46 162/103(127) NSR 0 (11) 10(A) , No pain 14:03:13 73 11 98 39.7 156/97(129) NSR 0 (11) 10(A) , No pain 14:07:29 71 10 98 40 151/83(122) NSR 0 (11) 10(A) , No pain 14:11:36 72 11 97 33.8 132/81(115) NSR 0 (11) 10(A) , No pain 14:15:46 75 10 98 48.9 143/86(122) NSR 0 (11) 10(A) , No pain Medications Time Medication Route Dose Verified Delivered Reason Notes Eff ectiveness by by 13:45:02 0.9% NaCl I.V. 100 Spike Paula used for ml/hr Luke Reyes manager of pmo 13:45:09 Oxygen etCO2 2 Spike Paula used for Nasal l/min Luke Reyes procedure cannula RN 13:45:15 Lidocaine 2% added 20ml Spike Spike for local to vial Luke Butler MD anesthetic field 13:45:19 Heparin Flush added 2 Spike Spike used for Bag to bags Luke Butler MD procedure (1000units/500ml field NS) 13:54:23 Fentanyl I.V. 100 Spike Spike for mcg Luke Butler MD sedation 13:54:40 Versed I.V. 2 mg Spike Paula for Luke Reyes sedation RN 13:59:43 Versed I.V. 2 mg Spike Paula for Luke Reyes sedation RN 13:59:53 Fentanyl I.V. 100 Spike Paula for mcg Luke Reyes sedation RN 14:07:13 Versed I.V. 2 mg Spike Paula for Luke Reyes sedation RN 14:07:23 Fentanyl I.V. 50 Spike Paula for mcg Luke Reyes sedation RN 14:12:32 Versed I.V. 2 mg Spike Paula for Luke Reyes sedation edger feeder Log Time Note 13:33:02 Time tracking: Regular hours (M-F 7:00 - 5:00) 13:33:06 Plan of Care:Hemodynamics will remain stable., Cardiac rhythm will remain stable., Comfort level will be maintained., Respiratory function will remain adequate., Patient/ family verbilizes understanding of procedure., Procedure tolerated without complication., Recovers from procedure without complications.. 13:33:08 Diagnostic Cath status Elective 13:33:09 Signed procedure consent form obtained from patient. 13:33:18 H&P Date Dictated: 02/07/2018 Within 30 days and on chart., H&P Addendum completed by physician on day of procedure. (MUST COMPLETE FOR ALL OUTPATIENTS). 13:33:26 Patient allergic to Sulfa drugs 13:33:51 Farhad Mckeon RT(R) sent for patient. Start room use. 13:34:29 Lab Result : BUN 11 mg/dl 13:34:29 Lab Result : Creatinine 1 mg/dl 13:34:29 Lab Result : Hemoglobin 14.5 g/dl 13:34:49 Patient Height : 64 inches 13:34:52 Patient Weight : 157 lbs 13:40:02 Patient received from Pre/Post Procedure Room to CCL 1 Alert and oriented. Tansferred to table in Supine position. 13:40:03 Warm blankets applied, and nery hugger turned on for patient comfort. 13:40:03 Correct patient and procedure confirmed by team. 13:40:04 ECG and BP/O2 sat monitors applied to patient. 13:44:51 Vital chart was started 13:45:02 0.9% NaCl 100 ml/hr I.V. was administered by Paula Reyes RN; used for procedure; 13:45:09 Oxygen 2 l/min etCO2 Nasal cannula was administered by Paula Reyes RN; used for procedure; 13:45:15 Lidocaine 2% 20ml vial added to field was administered by Spike Butler MD; for local anesthetic; 13:45:19 Heparin Flush Bag (1000units/500ml NS) 2 bags added to field was administered by Spike Butler MD; used for procedure; 13:50:12 Baseline sample Acquired. 13:50:16 Rhythm: sinus rhythm 13:50:17 Full Disclosure recording started 13:50:18 Pre-procedure instructions explained to patient. 13:50:18 Pre-op teaching completed and patient verbalized understanding. 13:50:19 Family in patients room. 13:50:20 Patient NPO since Midnight. 13:51:09 Is patient on blood thinner?No 13:51:11 Patient diabetic? No. 13:51:21 Previous problem with sedation/anesthesia? No ? 13:51:22 Snore? Yes 13:51:23 Sleep apnea? No 13:51:24 Deviated septum? No 13:51:25 Opens mouth fully? Yes 13:51:26 Sticks out tongue? Yes 13:51:29 Airway obstruction? Yes COPD 13:51:34 Dentures? No ? 13:51:38 Pre procedure: right dorsailis pedis pulse 2+ Normal; easily identifiable; not easily obliterated 13:51:43 Patient pain scale 0/10 ?. 13:52:04 IV patent on arrival in left forearm with 0.9% NaCl at [facility]. 13:52:07 Lab results completed and on chart. 13:52:10 Right groin area was prepped with chlora-prep and draped in sterile fashion 13:52:11 Alarms reviewed by R. N. 13:52:12 Sharps counted by scrub and verified by R.N. 13:52:14 Use device set Femoral Dx 13:52:15 ACIST Syringe (27400) opened to sterile field. 13:52:15 Bag Decanter (2002) opened to sterile field. 13:52:17 ACIST Hand Control (89948) opened to sterile field. 13:52:17 ACIST Manifold (28797) opened to sterile field. 13:52:18 Tegaderm 4 x 4 (1626W) opened to sterile field. 13:52:19 Medline Cath Pack ([id number]) opened to sterile field. 13:52:19 DIAGNOSTIC WIRE .035 260cm J wire (520128) opened to sterile field. 13:52:20 DIAGNOSTIC Multipack 5Fr catheter set ([id number]) opened to sterile field. 13:52:22 SHEATH 5FR [place] ([id number]) opened to sterile field. 13:53:03 --------ALL STOP TIME OUT------ 13:53:03 Final Timeout: patient, procedure, and site verified with staff and physician. All members of the team are in agreement. 13:53:04 Right groin site verified by team. 13:53:07 Physical assessment completed. ASA score P 2 - A patient with mild systemic disease as per Spike Butler MD. 13:53:10 Sedation plan: IV Moderate Sedation Medication:Versed, Fentanyl 13:54:23 Fentanyl 100 mcg I.V. was administered by Spike Butler MD; for sedation; 13:54:40 Versed 2 mg I.V. was administered by Paula Reyes RN; for sedation; 13:59:43 Versed 2 mg I.V. was administered by Paula Reyes RN; for sedation; 13:59:53 Fentanyl 100 mcg I.V. was administered by Puala Reyes RN; for sedation; 14:00:44 Procedure started. 14:01:14 Local anesthetic to right femoral artery with Lidocaine 2% by Spike Butler MD.INITIAL ACCESS ONLY 14:02:20 A 5 Fr sheath was inserted into the Right Femoral artery 14:02:33 A MULTIPACK JL 4.0 5Fr catheter was advanced over the wire and used for Procedure. 14:04:14 LCA angiography performed. 14:04:41 Catheter exchanged over wire. 14:05:22 A MULTIPACK 3DRC 5Fr catheter was advanced over the wire and used for Procedure. 14:06:04 RCA angiography performed. 14:06:15 Catheter exchanged over wire. 14:06:40 A MULTIPACK Pigtail 5 Fr catheter was advanced over the wire and used for Procedure. 14:07:13 Versed 2 mg I.V. was administered by Paula Reyes RN; for sedation; 14:07:20 LV gram done using EDWARD 14:07:23 Fentanyl 50 mcg I.V. was administered by Paula Reyes RN; for sedation; 14:07:24 Injector settings: Ml/sec: 10, Volume: 20, 14:07:40 LV hemodynamics recorded. 14:07:52 EF : 50 % 14:08:08 Catheter exchanged over wire. 14:08:45 GUIDE 5FR JR 4.0 catheter ([id number]) opened to sterile field. 14:10:14 Left renal angiography performed. 14:11:19 Right renal angiography performed. 14:12:01 Catheter removed. 14:12:07 EXOSEAL 5Fr (EX500) opened to sterile field. 14:12:20 Sheath removed intact; hemostasis achieved with Exoseal to the Right Femoral artery. 14:12:32 Versed 2 mg I.V. was administered by Paula Reyes RN; for sedation; 14:13:06 Procedure ended.(Physican Out) 14:14:26 Fluoroscopy time 03.00 minutes. 14:14:29 Fluoroscopy dose: 321 mGy 14:14:29 Flurop Dose total: 321 14:14:33 Contrast amount:Isovue 300 98ml. 14:14:34 Sharps counted by scrub and verified by R.N. 14:14:37 Post-op/insertion site Right Femoral artery dressed using a 4 x 4 and Tegaderm. 14:14:41 Post right femoral artery:stable, soft, clean and dry 14:14:46 Post-procedure physical assessment completed. ASA score P 2 - A patient with mild systemic disease as per Spike Butler MD. 14:14:52 Post procedure rhythm: sinus rhythm 14:14:57 Estimated blood loss: 10 ml 14:14:59 Post procedure instruction explained to patient.Patient verbalizes understanding. 14:14:59 Patient needs reinforcement of post procedure teaching. 14:15:31 Procedure type changed to Cath procedure, Diagnostic procedure, LHC, LHC w/Coronaries, Sedation Charges, Moderate Sedation up to 15 minutes, Peripheral Cath Diagnostic Procedure, Furnace Brazer Peripheral Procedures, Renal Arteriogram 14:15:55 Procedure and supply charges have been captured, reviewed, submitted and are correct. 14:15:57 Procedure Complication : No complications 14:15:59 Vital chart was stopped 14:16:00 See physician's report for complete and final results. 14:16:02 Report given to Pre/Post Procedure Room. 14:16:04 Patient transfered to Pre/Post Procedure Room with Bed. 14:16:07 Procedure ended. 14:16:07 Full Disclosure recording stopped 14:16:13 End room use (Document Last) Device Usage Item Name Manufacture Quantity Catalog Hospital Part Current Minimal L ot# / Number Charge Number Stock Stock Serial# Code [facility] 1 64662 338242 519556 815640 20 Syringe Medical (25192) Systems Inc Bag Microtek 1 2001S 596825 40700 649178 5 Decanter Medical Inc. () ACIST Hand Acist 1 10088 277687 363291 780388 5 Control Medical (11154) Systems Inc ACIST Acist 1 18140 706030 523859 291156 5 Manifold Medical (46124) Systems Inc Tegaderm 4 3M 1 1626W 209912 563554 898592 5 x 4 (1626W) Medline Medline 1 [id number] 868398 47947 482949 5 Cath Pack ([id number]) DIAGNOSTIC St Se 1 529988 530169 339246 907249 30 WIRE .035 260cm J wire (917518) DIAGNOSTIC Cardinal 1 SZ1103 732519 10758 652839 30 Multipack Health 5Fr catheter set ([id number]) SHEATH 5FR Terumo 1 [id number] 249687 152882 995637 40 [place] (KLI441) MULTIPACK Cardinal 1 115063 5 JL 4.0 5Fr Health catheter MULTIPACK Cardinal 1 528665 5 3DRC 5Fr Health catheter MULTIPACK Cardinal 1 493047 5 Pigtail 5 Health Fr catheter EXOSEAL 5Fr Cardinal 1 EX500 548296 537139 756810 10 (EX500) Health GUIDE 5FR Medtronic 1 [id number] 958906 806914 975738 1 JR 4.0 catheter ([id number]) Signature Audit [place] Stage Time Signature Unsigned Intra-Procedure 02/19/2018 Maddi Haque 2:19:39 PM RT(R) Signatures Monitor : Maddi Haque Signature : RT Date : Time : [place] [id number] [place] [address]
[2018-02-19] MEDS ORDERED: NITROSTAT0.4 MG SL (12:02)
[2018-02-19] MEDS ORDERED: OMEPRAZOLE20 M1 PO (12:04)
[2018-02-19] MEDS ORDERED: REXULTI1 MG PO (12:06)
[2018-02-19] MEDS ORDERED: CATAPRES0.1 MG PO (12:06)
[2018-02-19] MEDS ORDERED: HYSINGLA ER20 MG PO (12:06)
[2018-02-19 12:07] VITALS: BP 169/85; Ht 162.6 cm; Wt 68.2 kg
[2018-02-19] MEDS ORDERED: SUMATRIPTAN SUC25 MG PO (12:07)
[2018-02-19] MEDS ORDERED: TRUSOPT 2 % OPT10 ML EACH EYE (12:08)
[2018-02-19] MEDS ORDERED: ADVAIR HFA 230-12 GM INH (12:08)
[2018-02-19 12:14] LABS: BASOPHILS 0.6 % (0-2); EOSINOPHILS 2.2 % (0-7); HEMATOCRIT 43.9 % (36.0-48.0); HEMOGLOBIN 14.5 g/dL (12-16); IMMATURE GRANULOCYTES 0.3 % (0-5); LYMPHOCYTES 44.8 % (15-50); MCH 28.1 pg (26.0-34.0); MCV 85.1 fL (80.0-100.0); MEAN PLATELET VOLUME 10.7 fL (7.4-10.4); MONOCYTES 8.4 % (2-11); NEUTROPHILS 43.7 % (40-80); RBC 5.16 10x6/uL (4.00-5.40); WBC 3.6 10x3/uL (4.8-10.8)
[2018-02-19 12:23] LABS: PLATELET COUNT 247 10x3/uL (130-400)
[2018-02-19 12:25] LABS: ANION GAP 8.9 mmol/L (8-16); CALCIUM 8.7 mg/dL (8.5-10.1); CARBON DIOXIDE 30.9 mmol/L (21.0-32.0); POTASSIUM - SERUM 3.8 mmol/L (3.5-5.1)
== END 2018-02-19 16:18 | disposition home or self-care (01) ==
LOC: D.CATH 11:33
PROVIDERS: Internal Medicine Cardiovascular Disease
DX: I25.119 Atherosclerotic heart disease of native coronary artery with unspecified angina pectoris (principal); Z95.5 Presence of coronary angioplasty implant and graft; I10 Essential (primary) hypertension

== ENCOUNTER → 2018-03-15 10:56 | Outpatient (CLI) | payer MEDICAID ==
[2018-02-19 12:07] VITALS: BMI 25.8
[~2018-03-15 10:56] MED LIST changes: +ADVAIR HFA 230-12 GM INH; +CATAPRES0.1 MG PO; +OMEPRAZOLE20 M1 PO; +REXULTI1 MG PO; +SUMATRIPTAN SUC25 MG PO; +TRUSOPT 2 % OPT10 ML EACH EYE
== END | disposition home or self-care (01) ==
LOC: D.US 10:56
DX: I10 Essential (primary) hypertension (principal)

== ENCOUNTER → 2018-07-16 10:48 | Outpatient (CLI) | payer OTHER, MEDICAID ==
[2018-02-19 12:07] VITALS: BMI 25.8
== END | disposition home or self-care (01) ==
LOC: D.MRI 10:48
PROVIDERS: ATTEND Pain Medicine Interventional Pain Medicine
DX: M46.82 Other specified inflammatory spondylopathies, cervical region (principal); M47.892 Other spondylosis, cervical region; M46.87 Other specified inflammatory spondylopathies, lumbosacral region; M47.897 Other spondylosis, lumbosacral region; G89.4 Chronic pain syndrome; Z79.899 Other long term (current) drug therapy; Z79.891 Long term (current) use of opiate analgesic

== ENCOUNTER → 2018-08-06 10:38 | Outpatient (CLI) | payer OTHER, MEDICAID ==
[2018-02-19 12:07] VITALS: BMI 25.8
== END | disposition home or self-care (01) ==
LOC: D.MRI 10:38
PROVIDERS: ATTEND Pain Medicine Interventional Pain Medicine
DX: M46.82 Other specified inflammatory spondylopathies, cervical region (principal); M47.892 Other spondylosis, cervical region; M46.87 Other specified inflammatory spondylopathies, lumbosacral region; M47.897 Other spondylosis, lumbosacral region; G89.4 Chronic pain syndrome; Z51.81 Encounter for therapeutic drug level monitoring; Z79.899 Other long term (current) drug therapy; Z79.891 Long term (current) use of opiate analgesic

== ENCOUNTER → 2019-01-03 12:32 | Outpatient (CLI) | payer OTHER, MEDICAID ==
[2018-02-19 12:07] VITALS: BMI 25.8
== END | disposition home or self-care (01) ==
LOC: D.RAD 12:32
PROVIDERS: ATTEND Pain Medicine Interventional Pain Medicine
DX: M54.5 Low back pain (principal)

== ENCOUNTER → 2019-05-16 18:42 | Outpatient (CLI) | payer OTHER, MEDICAID ==
[2018-02-19 12:07] VITALS: BMI 25.8
== END | disposition home or self-care (01) ==
LOC: D.MAMMO 04-16 10:30
PROVIDERS: ATTEND Emergency Medicine
DX: N63.31 Unspecified lump in axillary tail of the right breast (principal)

== ENCOUNTER 2019-06-05 11:57 | Outpatient (CLI) | payer OTHER, MEDICAID ==
[~2019-06-05] VITALS: Ht 162.6 cm; Wt 70.5 kg
--- NOTE | ~2019-06-05 | HEMODYNAMI ---
PATIENT:JAZMIN LUIS MEDICAL RECORD: [id number] : 51 LOCATION:[facility] ADMISSION DATE: 06/05/19 Generatedon:06/05/201915:59 Patient name: JAZMIN LUIS Patient #: [id number] SSN: [id number] : 1955 Date of study: 06/05/2019 Page: Of Hemodynamic Procedure Report Patient Data Patient Demographics Procedure consent was obtained First Name: JAZMIN Gender: Female Last Name: TOBY : 1955 [facility] Initial: J Age: 64 year(s) Patient #: [id number] Race: SSN: [id number] Additional ID: [id number] Contact details Address: [address] [place] [address] State: [place] City: [place] Zip code: [address] Past Medical History Allergies Allergen Reaction Date Comments Reported Sulfa drugs 06/23/2014 Other allergy 02/20/2017 Sulfa Sulfa drugs 03/08/2017 Sulfa drugs 02/19/2018 Admission Admission Data Admission Date: 06/05/2019 Admission Time: 11:57 Arrival Date: 06/05/2019 Arrival Time: 14:00 Admit Source: Other Insurance Payor: Private health insurance [facility] #: [id number] Height (in.): 63.78 BSA: 1.75 (m2) Height (cm.): 162 BMI: 26.67 (kg/m2) Weight (lbs.): 154.32 Weight (kg.): 70 Lab Results Lab Result Date: 06/05/2019 Lab Result Time: 0:00 Biochemistry Name Units Result Min Max BUN mg/dl 13 --(--*-)-- 7 18 Creatinine mg/dl 1.1 --(--*-)-- 0.6 1.3 eGFR ml/min 53 *-(----)-- 90 120 NONAFRICAN CBC Name Units Result Min Max Hemoglobin g/dl 12.6 -*(----)-- 13.5 17.5 Procedure Procedure Types Cath Procedure Diagnostic Procedure [facility] w/Coronaries Sedation Charges Moderate Sedation up to 45 minutes PCI Procedure Coronary Stent Coronary Stent Initial Hemochron ACT Test Procedure Description Procedure Date Procedure Date: 06/05/2019 Procedure Start Time: 15:25 Procedure End Time: 15:55 Procedure Staff Name Function Spike Butler MD Performing Physician Caroline Blake RT Monitor Petty Gomez RT Scrub Paula Reyes RN Nurse Indication Angina Procedure Data Cath Procedure Fluoroscopy Diagnostic fluoroscopy Total fluoroscopy Time: 4.2 time: 4.2 min min Diagnostic fluoroscopy Total fluoroscopy dose: 776 dose: 776 mGy mGy Contrast Material Contrast Material Type Amount (ml) Isovue 300 102 Entry Location Entry Primary Successful Side Size Upsize Upsize Entry Closure Succes sful Closure Location (Fr) 1 (Fr) 2 (Fr) Remarks Device Remarks Femoral Right 5 Fr 6 Fr Exoseal artery Short Estimated blood loss: 5 ml Diagnostic catheters Device Type Used For End Catheter Placement MULTIPACK JL 4.0 5Fr Left Coronary catheter Angiography MULTIPACK 3DRC 5Fr Right Coronary catheter Angiography MULTIPACK Pigtail 5 Fr LV Angiography catheter MULTIPACK JL 4.0 5Fr Left Coronary catheter Angiography Procedure Complications No complications Procedure Medications Medication Administration Route Dosage 0.9% NaCl I.V. 100 ml/hr Oxygen etCO2 Nasal cannula 2 l/min Lidocaine 2% added to field 20 Heparin Flush Bag added to field 2 bags (1000units/500ml NS) Versed I.V. 2 mg Fentanyl I.V. 50 mcg Versed I.V. 2 mg Fentanyl I.V. 50 mcg Nitroglycerin IC/IA I.C. 100 mcg Versed I.V. 2 mg Heparin Bolus I.V. 7000 units Fentanyl I.V. 50 mcg Hemodynamics Rest BSA: 1.75 (m2) HGB: 12.6 (g/dl) O2 Consumption: Estimated: 158.65 (ml/min) O2 Co nsumption indexed: Estimated:90.66 (ml/min/m) Heart Rate: 63 (bpm) Pressure Samples Time Site Value (mmHg) Purpose Heart Use Rate(bpm) 15:34 LV 151/-14,6 Snapshot 74 15:35 AO 153/68(101) Pullback 70 15:35 LV 161/-5,17 Pullback 70 Gradients Valve Time Site 1 Site 2 Mean SEP/DFP Peak To Heart Use (mmHg) (sec/min) Peak Rate (mmHg) (bpm) Aortic 15:35 LV AO 10 24 8 70 161/-5,17 153/68(101) Calculations Valve P-P Mean Valve Index Valve Source Name Gradient Area Flow (cm2) Aortic 8 10 8 10 Snapshots Pre Cath Intra NCS Post Cath Vital Signs Time Heart Resp SPO2 etCO2 NIBP (mmHg) Rhythm Pain Sedation Rate (ipm) (%) (mmHg) Status Level (bpm) 15:14:11 59 15 100 33.7 Measuring NSR 0 (11) 10(A) , No pain 15:14:28 84 20 100 27.7 162/77(136) NSR 0 (11) 10(A) , No pain 15:18:44 70 19 98 20.2 152/93(126) NSR 0 (11) 10(A) , No pain 15:23:00 62 16 98 29.2 147/80(120) NSR 0 (11) 10(A) , No pain 15:27:18 67 12 98 35.2 164/71(117) NSR 0 (11) 10(A) , No pain 15:31:32 70 10 99 23.9 161/92(125) NSR 0 (11) 10(A) , No pain 15:35:50 72 12 99 22.4 150/82(129) NSR 0 (11) 10(A) , No pain 15:40:04 66 12 98 27.7 143/83(102) NSR 0 (11) 10(A) , No pain 15:44:14 69 15 97 0 135/87(115) NSR 0 (11) 10(A) , No pain 15:48:21 71 15 97 0 140/82(98) NSR 0 (11) 10(A) , No pain 15:52:33 76 11 96 0 139/78(103) NSR 0 (11) 10(A) , No pain Medications Time Medication Route Dose Verified Delivered Reason Notes Effectiveness by by 15:12:32 0.9% NaCl I.V. 100 Spike Paula used for ml/hr Luke Reyes ball racker 15:12:38 Oxygen etCO2 2 Spike Paula used for Nasal l/min Luke Reyes procedure cannula RN 15:12:43 Lidocaine 2% added 20ml Spike Spike for local to vial Luke Butler MD anesthetic field 15:12:47 Heparin Flush added 2 Spike Spike used for Bag to bags Luke Butler MD procedure (1000units/500ml field NS) 15:18:05 Versed I.V. 2 mg Spike Paula for sedation Luke Reyes RN 15:18:13 Fentanyl I.V. 50 Spike Paula for sedation mcg Luke Reyes RN 15:18:29 Fentanyl I.V. 50 Spike Paula for sedation mcg Luke Reyes RN 15:24:20 Versed I.V. 2 mg Spike Paula for sedation Luke Reyes RN 15:24:38 Fentanyl I.V. 50 Spike Paula for sedation mcg Luke Reyes RN 15:37:14 Nitroglycerin I.C. 100 Spike Spike for IC/IA mcg Luke Butler MD vasodilation 15:41:15 Versed I.V. 2 mg Spike Spike for sedation Luke Butlre MD 15:42:08 Heparin Bolus I.V. 7000 Spike Paula for verif ied units Luke Reyes anticoagulation with Dr. BRUCE Butler Procedure Log Time Note 14:50:30 Paula Reyes RN sent for patient. Start room use. 15:03:07 Informed consent obtained and on chart 15:03:12 Diagnostic Cath Status : Elective 15:03:30 Indication : Angina 15:05:03 Admit Source: Other 15:05:05 Arrival Date: 06/05/2019 2:00:00 PM 15:05:23 Insurance Payor : Private health insurance 15:06:34 Patient Height : 63.78 inches 15:06:37 Patient Weight : 154.32 lbs 15:07:22 Lab Result : Creatinine 1.1 mg/dl 15:07:22 Lab Result : eGFR NONAFRICAN 53 ml/min 15:07:22 Lab Result : BUN 13 mg/dl 15:07:22 Lab Result : Hemoglobin 12.6 g/dl 15:07:28 Procedure Status Elective Heart Cath (OP). 15:07:39 Time tracking: Regular hours (M-F 7:00 - 5:00) 15:07:42 Plan of Care:Hemodynamics will remain stable., Cardiac rhythm will remain stable., Comfort level will be maintained., Respiratory function will remain adequate., Patient/ family verbilizes understanding of procedure., Procedure tolerated without complication., Recovers from procedure without complications.. 15:07:51 Patient received from Pre/Post Procedure Room to CCL 2 Alert and oriented. Tansferred to table in Supine position. 15:07:52 Warm blankets applied, and nery hugger turned on for patient comfort. 15:07:52 Correct patient and procedure confirmed by team. 15:07:53 ECG and BP/O2 sat monitors applied to patient. 15:12:23 Vital chart was started 15:12:32 0.9% NaCl 100 ml/hr I.V. was administered by Paula Reyes RN; used for procedure; Verbal order read back and verified. 15:12:38 Oxygen 2 l/min etCO2 Nasal cannula was administered by Paula Reyes RN; used for procedure; Verbal order read back and verified. 15:12:43 Lidocaine 2% 20ml vial added to field was administered by Spike Butler MD; for local anesthetic; Verbal order read back and verified. 15:12:47 Heparin Flush Bag (1000units/500ml NS) 2 bags added to field was administered by Spike Butler MD; used for procedure; Verbal order read back and verified. 15:15:08 Baseline sample Acquired. 15:15:12 Rhythm: sinus rhythm 15:15:13 Full Disclosure recording started 15:15:17 H&P Date Dictated: 06/05/2019 Within 30 days and on chart., H&P Addendum completed by physician on day of procedure. (MUST COMPLETE FOR ALL OUTPATIENTS). 15:15:18 Pre-procedure instructions explained to patient. 15:15:18 Pre-op teaching completed and patient verbalized understanding. 15:15:20 Family in patients room. 15:15:22 Patient NPO since Midnight. 15:15:24 Is the patient allergic to Iodine/contrast media? No. 15:15:25 Was the patient premedicated? Yes 15:15:26 Is patient on blood thinner?No 15:15:27 Patient diabetic? No. 15:15:30 Previous problem with sedation/anesthesia? No ? 15:15:31 Snore? Yes 15:15:32 Sleep apnea? No 15:15:33 Deviated septum? No 15:15:34 Opens mouth fully? Yes 15:15:34 Sticks out tongue? Yes 15:15:37 Airway obstruction? Yes copd 15:15:42 Dentures? No ? 15:15:45 Pre procedure: right dorsailis pedis pulse 2+ Normal; easily identifiable; not easily obliterated 15:15:46 Pre procedure: left dorsailis pedis pulse 2+ Normal; easily identifiable; not easily obliterated 15:15:48 Patient pain scale 0/10 ?. 15:15:55 IV patent on arrival in left forearm with 0.9% NaCl at [facility]. 15:15:57 Lab results completed and on chart. 15:17:15 Risk of Mortality: 0.1 15:17:18 Risk of blood transfusion: 1.1 15:17:22 Risk of RADHA: 2.0 15:17:26 Right groin area was prepped with chlora-prep and draped in sterile fashion 15:17:27 Alarms reviewed by R. N. 15:17:27 Sharps counted by scrub and verified by R.N. 15:17:29 Physician arrived 15:17:29 --------ALL STOP TIME OUT------ 15:17:29 Final Timeout: patient, procedure, and site verified with staff and physician. All members of the team are in agreement. 15:17:31 Right groin site verified by team. 15:17:34 Fire Safety Assessment: A--An alcohol-based skin anteseptic being used preoperatively., C--Open oxygen or nitrous oxide is being used., D--An ESU, laser, or fiber-optic light is being used. 15:17:37 Physical assessment completed. ASA score P 2 - A patient with mild systemic disease as per Spike Butler MD. 15:17:44 3a) 45-59 Moderately reduced kidney function. 15:18:05 Versed 2 mg I.V. was administered by Paula Reyes RN; for sedation; Verbal order read back and verified. 15:18:13 Fentanyl 50 mcg I.V. was administered by Paula Reyes RN; for sedation; Verbal order read back and verified. 15:18:25 Maximum allowable contrast dose (3.7 X eGFR X 0.75)147 ml. 15:18:29 Fentanyl 50 mcg I.V. was administered by Paula Reyes RN; for sedation; Verbal order read back and verified. 15:18:29 Sedation plan: IV Moderate Sedation Medication:Versed, Fentanyl 15:19:59 Use device set Femoral Dx 15:20:00 ACIST Syringe (51140) opened to sterile field. 15:20:01 Bag Decanter (2002S) opened to sterile field. 15:20:01 Medline Cath Pack ([id number]) opened to sterile field. 15:20:03 ACIST Hand Control (54699) opened to sterile field. 15:20:03 ACIST Manifold (63844) opened to sterile field. 15:20:03 DIAGNOSTIC Multipack 5Fr catheter set ([id number]) opened to sterile field. 15:20:04 Tegaderm 4 x 4 (1626W) opened to sterile field. 15:20:05 SHEATH 5FR [place] (LKU898) opened to sterile field. 15:20:06 EMERALD Guide Wire (820-256) opened to sterile field. 15:24:20 Versed 2 mg I.V. was administered by Paula Reyes RN; for sedation; Verbal order read back and verified. 15:24:38 Fentanyl 50 mcg I.V. was administered by Paula Reyes RN; for sedation; Verbal order read back and verified. 15:25:34 Procedure started. 15:25:38 Local anesthetic to right femoral artery with Lidocaine 2% by Spike Butler MD.INITIAL ACCESS ONLY 15:25:46 A 5 Fr sheath was inserted into the Right Femoral artery 15:27:33 A MULTIPACK JL 4.0 5Fr catheter was advanced over the wire and used for Left Coronary Angiography. 15:29:02 LCA angiography performed. 15:29:06 Injector settings: Ml/sec: 3, Volume: 6, 15:32:22 Catheter removed. 15:32:32 A MULTIPACK 3DRC 5Fr catheter was advanced over the wire and used for Right Coronary Angiography. 15:32:44 RCA angiography performed. 15:32:47 Injector settings: Ml/sec: 3, Volume: 6, 15:32:56 Catheter removed. 15:33:01 A MULTIPACK Pigtail 5 Fr catheter was advanced over the wire and used for LV Angiography. 15:34:14 LV hemodynamics recorded. 15:34:15 LV gram done using EDWARD 15:34:18 Injector settings: Ml/sec: 5, Volume: 15, 15:34:46 EF : 50 % 15:34:53 Catheter removed. 15:36:12 A MULTIPACK JL 4.0 5Fr catheter was advanced over the wire and used for Left Coronary Angiography. 15:37:14 Nitroglycerin IC/IA 100 mcg I.C. was administered by Spike Butler MD; for vasodilation; Verbal order read back and verified. 15:38:19 Catheter removed. 15:38:21 Proceeding to intervention. 15:38:40 SHEATH 6FR [place] (XZF852) opened to sterile field. 15:38:41 INFLATOR Merit BasixCompak (GH2328) opened to sterile field. 15:38:41 BMW 300cm Jackson 2 J wire ([id number]) opened to sterile field. 15:38:42 TUBING High Pressure Extension Tubing (Luke) (PS2566U) opened to sterile field. 15:40:23 GUIDE 6FR XBLAD 3.5 catheter ([id number]) opened to sterile field. 15:40:34 Sheath upsized to a 6 Fr Short. 15:40:43 6 Fr xblad 3.5 guide catheter was inserted over the wire 15:40:47 Pre PCI Site: [place] mCirc has 80% stenosis. 15:40:47 ACC Pre-intervention JOVANI Flow is 3. 15:40:47 bmw wire advanced. 15:40:49 Wire advanced across lesion. 15:41:15 Versed 2 mg I.V. was administered by Spike Butler MD; for sedation; Verbal order read back and verified. 15:42:08 Heparin Bolus 7000 units I.V. was administered by Paula Reyes RN; for anticoagulation; verified with Dr. Butler Verbal order read back and verified. 15:46:34 Place stent Inflation Number: 1 A INGRID RX 2.5 x 12 stent ([id number]) was prepped and advanced across the Mid CX 80. The stent was deployed at 13 FAINA for 0:10 (min:sec) 0. 15:46:40 Stent catheter was removed intact over wire. 15:46:41 Wire removed. 15:46:41 Guide catheter removed. 15:49:29 ACC Post-intervention JOVANI Flow is 3. 15:50:17 Post PCI Site: [place] mCirc has 0% stenosis. 15:50:35 Sheath removed intact; hemostasis achieved with Exoseal to the Right Femoral artery. 15:50:37 Procedure ended.(Physican Out) 15:50:46 Fluoroscopy time 04.20 minutes. 15:50:50 Flurop Dose total: 776 15:50:50 Fluoroscopy dose: 776 mGy 15:50:55 Dose Area Product 96324 mGy/cm. 15:51:59 ACT drawn and resulted at >400- out of range seconds. (normal therapeutic range 180-240 seconds). 15:52:04 Contrast amount:Isovue 300 102ml. 15:52:07 Maximum allowable dose exceeded? No. 15:52:08 Sharps counted by scrub and verified by R.N. 15:52:13 Insertion/operative site no bleeding no hematoma. 15:52:18 Post-op/insertion site Right Femoral artery dressed using a 4 x 4 and Tegaderm. 15:52:30 Post Procedure Pulses reassessed and unchanged 15:52:33 Post procedure rhythm: unchanged. 15:52:36 Estimated blood loss: 5 ml 15:52:37 Post procedure instruction explained to patient.Patient verbalizes understanding. 15:52:37 Patient needs reinforcement of post procedure teaching. 15:54:35 Procedure type changed to Cath procedure, Diagnostic procedure, C, [facility] w/Coronaries, Sedation Charges, Moderate Sedation up to 45 minutes, PCI procedure, Coronary Stent, Coronary Stent Initial, Hemochron ACT Test 15:54:36 Procedure and supply charges have been captured, reviewed, submitted and are correct. 15:54:40 Procedure Complication : No complications 15:54:42 Vital chart was stopped 15:54:58 [facility] Findings: MVD- PCI performed (see procedure note) 15:55:01 Operative report dictated upon procedure completion. 15:55:01 See physician's report for complete and final results. 15:55:06 Report given to Pre/Post Procedure Room. 15:55:08 Patient transfered to Pre/Post Procedure Room with Stretcher. 15:55:13 Procedure ended. 15:55:13 Full Disclosure recording stopped 15:55:28 ACC-PCI Only Patient was given prescriptions, or instructed by Spike Butler MD to start/continue the following medications upon discharge: Plavix 15:55:32 End room use (Document Last) 15:56:14 EXOSEAL 6Fr (EX600) opened to sterile field. Intervention Summary Intervention Notes Time ActionType Lesion and Equipment Used Action# Pressure Duration Attributes 15:46:34 Place stent Mid CX INGRID RX 2.5 x 1 13 00:10 12 stent ([id number]) Device Usage Item Name Manufacture Quantity Catalog Hospital Part Current [facility] Lot# / Number Charge Number Stock Stock Serial# Code ACIST Syringe Acist 1 76286 137839 572646 341783 20 (58806) [employer] Inc Bag Decanter Microtek 1 2001S 252024 07532 612919 5 (2001S) Medical Inc. Medline Cath Medline 1 [id number] 325926 25324 083512 5 Pack ([id number]) ACIST Hand Acist 1 85116 631124 033330 309407 5 Control Medical (62478) Systems Inc ACIST Manifold Acist 1 77132 908398 661036 277885 5 (68907) Medical Systems Inc DIAGNOSTIC Cardinal 1 [id number] 184697 98810 713994 30 Multipack 5Fr Health catheter set (CD3161) Tegaderm 4 x 4 3M 1 1626W 860549 717070 557419 5 (1626W) SHEATH 5FR Terumo 1 OAM210 242808 252459 317346 5 [place] (JAN722) EMERALD Guide Cardinal 1 502-455 445867 636895 645435 5 Wire (502-455) Health MULTIPACK JL Cardinal 1 296871 5 4.0 5Fr Health catheter MULTIPACK 3DRC Cardinal 1 100433 5 5Fr catheter Health MULTIPACK Cardinal 1 408207 5 Pigtail 5 Fr Health catheter SHEATH 6FR Terumo 1 XGZ641 492497 334184 907545 40 [place] (LXD529) INFLATOR Merit Merit 1 TS9905 440104 033801 098385 15 BasixT[employer]ellutionscV[employer] ([place]7944) BMW 300cm Chu 1 [id number] 434941 197988 447661 5 Jackson 2 J Vascular wire (4597917R) TUBING High Merit 1 [id number] 268674 49341 268634 10 Pressure Medical Extension Tubing Darwin) ([id number]) GUIDE 6FR Cardinal 1 [id number] 573177 303383 664817 10 XBLAD 3.5 Health catheter (64453860) INGRID RX 2.5 x Medtronic 1 [id number] 135140 9255457 307779 5 [id number] 12 stent ([id number]) EXOSEAL 6Fr Cardinal 1 EX600 447045 895689 594945 10 (EX600) Health Signature Audit [place] Stage Time Signature Unsigned Intra-Procedure 06/05/2019 Caroline Blake 3:58:16 PM RT(R) Intra-Procedure 06/05/2019 Paula Reyes 3:59:00 PM RN Intra-Procedure 06/05/2019 Spike Butler MD 3:59:46 PM Signatures Performing Physician : Signature : Spike Butler MD Date : Time : Monitor : Caroline Blake RT Signature : Date : Time : Nurse : Paula Reyes RN Signature : Date : Time : [place] [id number] [place] [address]
[2019-06-05] MEDS ORDERED: NORMODYNE / TR200 MG PO (12:41)
[2019-06-05] MEDS ORDERED: TRIAMTERENE-HC1 EAC3 PO (12:41)
[2019-06-05] MEDS ORDERED: NORVASC10 MG PO (12:42)
[2019-06-05] MEDS ORDERED: LIPITOR80 MG PO (12:42)
[2019-06-05] MEDS ORDERED: TIROSINT25 MCG PO (12:43)
[2019-06-05 12:55] VITALS: BP 136/79; Ht 162.6 cm; Wt 70.5 kg
[2019-06-05 13:53] LABS: BASOPHILS 0.8 % (0-2); EOSINOPHILS 3.4 % (0-7); HEMATOCRIT 39.5 % (36.0-48.0); HEMOGLOBIN 12.6 g/dL (12-16); IMMATURE GRANULOCYTES 0.2 % (0-5); LYMPHOCYTES 29.2 % (15-50); MCH 27.2 pg (26.0-34.0); MCHC 31.9 g/dL (31.0-37.0); MCV 85.1 fL (80.0-100.0); MEAN PLATELET VOLUME 11.1 fL (7.4-10.4); MONOCYTES 7.9 % (2-11); NEUTROPHILS 58.5 % (40-80); PLATELET COUNT 239 10x3/uL (130-400); RBC 4.64 10x6/uL (4.00-5.40); RDW 14.3 % (11.5-14.5); WBC 5.1 10x3/uL (4.8-10.8)
[2019-06-05 13:54] LABS: ANION GAP 8.8 mmol/L (8-16); CALCIUM 9.1 mg/dL (8.5-10.1); CARBON DIOXIDE 29.4 mmol/L (21.0-32.0); CHOL - HDL RATIO 3.2 ratio (2.3-4.1); CREATININE - SERUM 1.1 mg/dL (0.6-1.3); LDL-HDL RATIO 1.7 ratio (1.5-3.5); POTASSIUM - SERUM 4.2 mmol/L (3.5-5.1)
--- NOTE | 2019-06-05 16:05 | NUR ---
PT RECEIVED BACK TO ROOM VIA STRETCHER FROM CONCESSION SUPERVISOR FOR RECOVERY. PT DROWSY BUT VERBALLY AROUSABLE. PT DENIES PAIN OR DISCOMFORT. IV PATENT INFUSING VIA L ARM PER ORDERS. PT PLACED ON CARDIAC MONITORS, HR NSR, RATE 68, BP 147/72, RR 14, SAT 96 ON ROOM AIR. R GROIN SOFT, DRESSING CDI NO S/S HEMATOMA NOTED. LEG PINK AND WARM, PEDAL PULSES PALPABLE. PT INSTRUCTED TO KEEP HEAD FLAT ON PILLOW AND LEG STRAIGHT, SHE VERBALIZED UNDERSTANDING. CALL LIGHT IN REACH, AT BS.
[2019-06-05] MEDS ORDERED: PLAVIX75 MG PO (16:23)
--- NOTE | 2019-06-05 16:30 | NUR ---
PT RESTING COMFORTABLY, NO C/O PAIN. SIPS OF SPRITE GIVEN. R GROIN SOFT, DRESSING CDI NO S/S HEMATOMA NOTED. PEDAL PULSES PALPABLE. AT BS, CALL LIGHT IN REACH
--- NOTE | 2019-06-05 17:15 | NUR ---
PT RESTING W/O COMPLAINTS. R GROIN SOFT, NO S/S HEMATOMA. VSS. PT DENIES NEEDS, CALL LIGHT IN REACH, AT BS.
--- NOTE | 2019-06-05 17:48 | NUR ---
DRESSING ON GROIN SATURATED W BLOOD, DRESSING REMOVED AND 4X4 PLACED OVER SITE. MANUAL PRESSURE HELD X 6 MIN, BLEEDING STOPPED OTHER THAN SM AMOUNT OOZING. SANDBAG PLACED WILL WATCH CLOSELY. PT DENIES PAIN AND NO S/S HEMATOMA. VSS.
--- NOTE | 2019-06-05 18:14 | NUR ---
GROIN SOFT, NO ACTIVE BLEEDING NOTED. SANDBAG REPLACED. HR 67, BP 155/81, RR 15, SAT 98. PT DENIES PAIN OR DISCOMFORT. NO S/S HEMATOMA. CALL LIGHT IN REACH, AT BS
--- NOTE | 2019-06-05 18:24 | NUR ---
GROIN SOFT, NO BLEEDING OR S/S HEMATOMA. SANDBAG REPLACED WILL CONTINUE TO MONITOR. AT BS, CALL LIGHT IN REACH, VSS.
--- NOTE | 2019-06-05 18:40 | NUR ---
GROIN REMAINS FREE OF BLEEDING OR HEMATOMA. SANDBAG REMOVED. CLEAN 4X4 AND LG TEGADERM DRESSING APPLIED. HOB ELEVATED SLIGHTLY. HR 65, BP 153/83. CALL LIGHT IN REACH.
--- NOTE | 2019-06-05 19:07 | NUR ---
GROIN SOFT, DRESSING CDI NO BLEEDING NOTED, NO S/S HEMATOMA. HOB ELEVATED A LITTLE MORE. SANDWICH AND COFFEE SERVED. PT DENIES PAIN OR DISCOMFORT. VSS. CALL LIGHT IN REACH
--- NOTE | 2019-06-05 19:28 | NUR ---
GROIN REMAINS SOFT, DRESSING CDI NO BLEEDING OR S/S HEMATOMA. PT PLACED ON BEDPAN, VOIDED 600CC CLEAR YELLOW URINE. PT DENIES OTHER NEEDS AT THIS TIME. CALL LIGHT IN REACH
--- NOTE | 2019-06-05 19:43 | NUR ---
DISCHARGE INSTRUCTIONS REVIEWED W PT AND , BOTH VERBALIZED UNDERSTANDING. EXPRESSED IMPORTANCE OF GETTING PLAVIX FILLED AND STARTING IT TOMORROW PT VERBALIZED UNDERSTANDING. GROIN REMAINS FREE OF BLEEDING OR S/S HEMATOMA. IV REMOVED W CATH INTACT, MONITORS REMOVED AND PT UP TO DRESS FOR DISCHARGE.
--- NOTE | 2019-06-05 19:51 | NUR ---
PT DISCHARGED VIA WC TO WAITING IN PRIVATE VEHICLE. PT HAD ALL BELONGINGS AND DISCHARGE PAPERWORK
== END 2019-06-05 19:51 | disposition home or self-care (01) ==
LOC: D.CATH 11:57
PROVIDERS: ATTEND Internal Medicine Cardiovascular Disease
DX: I25.110 Atherosclerotic heart disease of native coronary artery with unstable angina pectoris (principal); E78.5 Hyperlipidemia, unspecified; I10 Essential (primary) hypertension; R94.39 Abnormal result of other cardiovascular function study; R07.9 Chest pain, unspecified
CPT/HCPCS: 93458; C9600

== ENCOUNTER → 2020-01-15 12:20 | Outpatient (CLI) | payer OTHER, MEDICAID ==
[2019-06-05 12:55] VITALS: BMI 26.6
[~2020-01-15 12:20] MED LIST changes: +LIPITOR80 MG PO; +NORMODYNE / TR200 MG PO; +NORVASC10 MG PO; +TIROSINT25 MCG PO; +TRIAMTERENE-HC1 EAC3 PO
== END | disposition home or self-care (01) ==
LOC: D.RAD 12:20
PROVIDERS: ATTEND Emergency Medicine
DX: M54.5 Low back pain (principal)